=== PATIENT | male | born 1955 | race Caucasian/White ===

== ENCOUNTER 2017-08-18 19:52 | Emergency (ER) | payer MEDICARE ==
[2014-05-09 07:35] VITALS: BMI 34.0
[~2017-08-18 19:52] MED LIST: CARDIZEM120 MG PO; CLEOCIN HCL150 MG PO; COLACE100 MG PO; CYCLOBENZAPRINE5 MG; ELIQUIS2.5 MG PO; FLORANEX / LACT1 TAB PO; HYDROCODONE-APA1 TAB PO; HYDROCORTISONE30 G8 TOPICAL; IBUPROFEN800 MG PO; LASIX20 MG PO; LIORESAL 10 MG10 MG PO; MS CONTIN15 MG PO; MULTI-DAY VITAM1 TAB PO; PERCOCET 10/3251 TA1 PO; SENNA PLUS TA1 UDTAB PO; TYLENOL #4; ZYLOPRIM300 MG PO
[2017-08-18 20:39] LABS: APPEARANCE TURBID (CLEAR); COLOR RED (YELLOW); NITRITE NEGATIVE (NEGATIVE); SPECIFIC GRAVITY 1.015 (1.005-1.020)
[2017-08-18 20:40] LABS: BACTERIA FEW /hpf (NONE SEEN); BILIRUBIN NEGATIVE (NEGATIVE); GLUCOSE NEGATIVE (NEGATIVE); KETONE NEGATIVE (NEGATIVE); PROTEIN 1+ mg/dL (NEGATIVE); RED CELLS - URINE 25-50 /hpf (0-5); UROBILINOGEN NORMAL (NORMAL); WHITE CELLS - URINE 0-5 /hpf (0-5)
[2017-08-18 21:05] LABS: BASOPHILS 0.4 % (0-2); EOSINOPHILS 2.1 % (0-7); HEMATOCRIT 44.5 % (42.0-54.0); HEMOGLOBIN 15.6 g/dL (13.5-17.5); IMMATURE GRANULOCYTES 0.6 % (0-5); LYMPHOCYTES 22.2 % (15-50); MCH 33.4 pg (26.0-34.0); MCHC 35.1 g/dL (31.0-37.0); MCV 95.3 fL (80.0-100.0); MEAN PLATELET VOLUME 9.8 fL (7.4-10.4); NEUTROPHILS 66.7 % (40-80); PLATELET COUNT 165 10x3/uL (130-400); RBC 4.67 10x6/uL (4.20-6.10); RDW 12.2 % (11.5-14.5); WBC 10.9 10x3/uL (4.8-10.8)
[2017-08-18 21:36] LABS: ALBUMIN 3.8 g/dL (3.4-5.0); ALKALINE PHOSPHATASE 71 U/L (46-116); ALT (SGPT) 41 U/L (10-68); CALC OSMOLALITY 281 mosm/kg (275-300); CALCIUM 8.8 mg/dL (8.5-10.1); CARBON DIOXIDE 26.5 mmol/L (21.0-32.0); CHLORIDE - SERUM 103 mmol/L (98-107); CREATININE - SERUM 0.9 mg/dL (0.6-1.3); POTASSIUM - SERUM 3.8 mmol/L (3.5-5.1); PROTEIN - SERUM 7.8 g/dL (6.4-8.2); SODIUM 141 mmol/L (136-145); UREA NITROGEN 15 mg/dL (7-18); eGFR NON AFRICAN AMERICAN > 90 mL/min (90-120)
[2017-08-18 21:42] LABS: GLUCOSE 101 mg/dL (74-106)
== END 2017-08-18 21:58 | disposition home or self-care (01) ==
LOC: D.ER 19:52
PROVIDERS: Emergency Medicine
DX: R31.9 Hematuria, unspecified (principal)

== ENCOUNTER → 2018-11-26 11:14 | Outpatient (CLI) | payer OTHER ==
[2014-05-09 07:35] VITALS: BMI 34.0
== END | disposition home or self-care (01) ==
LOC: D.HCCARDIO 11-22 11:00
PROVIDERS: ATTEND Internal Medicine Cardiovascular Disease
DX: I35.0 Nonrheumatic aortic (valve) stenosis (principal)

== ENCOUNTER 2019-11-11 00:55 | Inpatient (IN) | payer OTHER ==
[2019-11-11] VITALS (9 sets, daily range): BP systolic 105–137; BP diastolic 74–95; Ht 175.3 cm; Wt 94.1 kg
[~2019-11-11] VITALS: Ht 175.3 cm; Wt 94.1 kg
--- NOTE | ~2019-11-11 | HEMODYNAMI ---
PATIENT:JAY CARRERA MEDICAL RECORD: [id number] : 57 LOCATION[facility] [id number] ADMISSION DATE: 11/11/19 Generatedon:11/14/201911:46 Patient name: JAY CARERRA Patient #: [id number] SSN: [id number] : 1955 Date of study: 11/14/2019 Page: Of Hemodynamic Procedure Report Patient Data Patient Demographics Procedure consent was obtained First Name: JAY Gender: Male Last Name: DEBI : 1955 Middle Initial: W Age: 64 year(s) Patient #: [id number] Race: SSN: [id number] Additional ID: [id number] Contact details Address: [address] [place] [address] ROAD State: [place] City: [place] Zip code: [address] Past Medical History Allergies Allergen Reaction Date Comments Reported Other allergy 11/14/2019 SHELLFISH Admission Admission Data Admission Date: 11/11/2019 Admission Time: 18:10 Arrival Date: 11/14/2019 Arrival Time: 0:00 Admit Source: Other Insurance Payor: Private Room #: D.[id number] health insurance [facility] #: [id number] Height (in.): 69 BSA: 2.1 (m2) Height (cm.): 175.26 BMI: 30.63 (kg/m2) Weight (lbs.): 207.39 Weight (kg.): 94.07 Lab Results Lab Result Date: 11/14/2019 Lab Result Time: 0:00 Biochemistry Name Units Result Min Max BUN mg/dl 29 --(----)-* 7 18 Creatinine mg/dl 1 --(--*-)-- 0.6 1.3 eGFR ml/min 79.65139 *-(----)-- 90 120 NONAFRICAN CBC Name Units Result Min Max Hematocrit % 42.4 --(*---)-- 42 54 Hemoglobin g/dl 13.4 -*(----)-- 13.5 17.5 Procedure Procedure Types Cath Procedure Diagnostic Procedure LHC LHC w/Coronaries Right Heart RHC and LHC w/Coronaries Sedation Charges Moderate Sedation up to 30 minutes Procedure Description Procedure Date Procedure Date: 11/14/2019 Procedure Start Time: 11:18 Procedure End Time: 11:45 Procedure Staff Name Function Naeem Min MD Performing Physician Marisela Chamberlain RT Monitor Cheryl Owens RT Scrub Say Hitchcock RN Nurse Procedure Data Cath Procedure Fluoroscopy Diagnostic fluoroscopy Total fluoroscopy Time: 3.6 time: 3.6 min min Diagnostic fluoroscopy Total fluoroscopy dose: 581 dose: 581 mGy mGy Contrast Material Contrast Material Type Amount (ml) Isovue 370 46 Entry Location Entry Primary Successful Side Size Upsize Upsize Entry Closure Ann ccessful Closure Location (Fr) 1 (Fr) 2 (Fr) Remarks Device Remarks Femoral Right 5 Fr Exoseal artery Femoral Right 7 Fr Manual vein Short Compression Estimated blood loss: 5 ml Diagnostic catheters Device Type Used For End Catheter Placement SWAN 7Fr Thermodilution Procedure cather (131F7P) MULTIPACK JL 4.0 5Fr Procedure catheter MULTIPACK 3DRC 5Fr Procedure catheter DIAGNOSTIC AL1 5Fr Procedure catheter ([id number]) Procedure Complications No complications Procedure Medications Medication Administration Route Dosage Oxygen etCO2 Nasal cannula 2 l/min Lidocaine 2% added to field 20 Heparin Flush Bag added to field 2 bags (1000units/500ml NS) 0.9% NaCl I.V. 100 ml/hr Versed I.V. 1 mg Fentanyl I.V. 50 mcg Versed I.V. 1 mg Fentanyl I.V. 50 mcg Versed I.V. 1 mg Hemodynamics Rest BSA: 2.1 (m2) HGB: 13.4 (g/dl) O2 Consumption: Estimated: 284.7 (ml/min) O2 Cons umption indexed: Estimated:135.57 (ml/min/m) Heart Rate: 119 (bpm) Pressure Samples Time Site Value (mmHg) Purpose Heart Use Rate(bpm) 11:23 PCW 57/56(54) Snapshot 109 11:24 PA 90/60(71) Snapshot 108 11:35 LV 172/47,52 Snapshot 110 11:36 AO 140/108(122) Pullback 109 11:36 LV 196/14,62 Pullback 109 11:37 RV 87/39,51 Snapshot 110 11:37 RA 56/55(53) Snapshot 120 Gradients Valve Time Site 1 Site 2 Mean SEP/DFP Peak To Heart Use (mmHg) (sec/min) Peak Rate (mmHg) (bpm) Aortic 11:36 LV AO 33 24 56 109 196/14,62 140/108(122) Thermodilution Cardiac Output Time Cardiac Output (l/min) Use 11:25 Injectate sensor off/Catheter sensor off 11:26 Injectate sensor off/Catheter sensor off 11:30 Low catheter temperature Calculations Valve P-P Mean Valve Index Valve Source Name Gradient Area Flow (cm2) Aortic 56 33 56 33 Snapshots Thermal Samples Pre Cath Intra NCS Post Cath Vital Signs Time Heart Resp SPO2 etCO2 NIBP (mmHg) Rhythm Pain Sedation Rate (ipm) (%) (mmHg) Status Level (bpm) 11:06:40 115 18 99 0 126/98(116) NSR 0 (11) 10(A) , No pain 11:10:27 113 47 100 0 118/92(107) NSR 0 (11) 10(A) , No pain 11:14:17 111 30 100 0 107/80(93) NSR 0 (11) 10(A) , No pain 11:18:02 108 18 100 0 110/89(99) NSR 0 (11) 10(A) , No pain 11:22:22 108 17 100 0 116/80(102) NSR 0 (11) 10(A) , No pain 11:26:17 107 16 100 0 114/67(93) NSR 0 (11) 10(A) , No pain 11:30:05 110 17 99 0 123/93(114) NSR 0 (11) 10(A) , No pain 11:34:25 114 17 99 0 140/106(122) NSR 0 (11) 10(A) , No pain 11:38:31 109 22 99 0 113/59(62) NSR 0 (11) 10(A) , No pain 11:43:26 110 29 99 0 122/90(105) NSR 0 (11) 10(A) , No pain Medications Time Medication Route Dose Verified Delivered Reason Notes Eff ectiveness by by 11:11:36 Oxygen etCO2 2 Naeem Deal used for Nasal l/min St Ralf Hitchcock RN procedure cannula 11:11:43 Lidocaine 2% added 20ml Naeem Naeem for local to vial [facility] anesthetic field MD [place] 11:11:49 Heparin Flush added 2 Naeem Naeem used for Bag to bags [facility] procedure (1000units/500ml field MD [place] NS) 11:11:57 0.9% NaCl I.V. 100 Naeem Buffie Per ml/hr Denison Coretta RN physician 11:12:11 Versed I.V. 1 mg Naeem Buffie for PakoRalf Hitchcock RN sedation 11:12:19 Fentanyl I.V. 50 Naeem Buffie [facility] PakoRalf Hitchcock RN sedation 11:18:39 Versed I.V. 1 mg Naeem Buffie for Denison Hitchcock RN sedation 11:18:43 Fentanyl I.V. 50 Naeem Buffie [facility] PakoRalf Hitchcock RN sedation 11:25:48 Versed I.V. 1 mg Naeem Buffie for Denison Coretta RN sedation Procedure Log Time Note 10:12:13 Informed consent obtained and on chart 10:12:16 Diagnostic Cath Status : Elective 10:12:42 Plan of Care:Hemodynamics will remain stable., Cardiac rhythm will remain stable., Comfort level will be maintained., Respiratory function will remain adequate., Patient/ family verbilizes understanding of procedure., Procedure tolerated without complication., Recovers from procedure without complications.. 10::27 Arrival Date: 11/14/2019 12:00:00 AM 10:21:27 Admit Source: Other 10:21:33 Insurance Payor : Private health insurance 10:21:58 Patient Height : 69 inches 10:22:03 Patient Weight : 207.39 lbs 10:23:08 Lab Result : Hemoglobin 13.4 g/dl 10:23:08 Lab Result : eGFR NONAFRICAN 79.28085 ml/min 10:23:08 Lab Result : BUN 29 mg/dl 10:23:08 Lab Result : Creatinine 1 mg/dl 10:23:08 Lab Result : Hematocrit 42.4 % 10:43:14 ACC Patient presents with Stable Angina CCS Anginal Class 2--Slight limitation of ordinary activity. 10:43:19 Procedure Status Urgent Heart Cath (IP). 10:43:48 Time tracking: Regular hours (M-F 7:00 - 5:00) 10:44:01 Cheryl Roman RT(R) sent for patient. Start room use. 10:44:14 Patient NPO since Midnight. 10:44:24 Patient allergic to Other allergySHELLFISH 10:44:32 Lab results completed and on chart. 10:45:29 Stress Test: no; N/A ? 10:45:31 Alarms reviewed by R. N. 10:45:31 Sharps counted by scrub and verified by R.N. 10:47:00 Risk of Mortality: 0.1 10:47:02 Risk of blood transfusion: 0.1 10:47:04 Risk of SHAHID: 0.1 10:47:35 H&P Date Dictated: 11/11/2019 Within 30 days and on chart.. 10:47:37 Pre-procedure instructions explained to patient. 10:47:37 Pre-op teaching completed and patient verbalized understanding. 10:47:39 Family in patients room. 10:58:28 Patient received from Med II to CCL 2 Alert and oriented. Tansferred to table in Supine position. 10:58:31 Warm blankets applied, and mendy hugger turned on for patient comfort. 10:58:31 Correct patient and procedure confirmed by team. 10:58:32 ECG and BP/O2 sat monitors applied to patient. 11:05:29 Vital chart was started 11:05:31 Baseline sample Acquired. 11:05:34 Full Disclosure recording started 11:05:37 Rhythm: sinus tachycardia 11:05:56 ----Pre-sedation anethsthesia assessment.---- 11:06:01 Previous problem with sedation/anesthesia? No ? 11:06:05 Snore? Yes 11:06:20 If diabetic: On Metformin? No 11:06:25 Patient diabetic? No. 11:06:34 Airway obstruction? Yes ASTHMA 11:06:38 Dentures? No ? 11:06:40 Sticks out tongue? Yes 11:06:41 Opens mouth fully? Yes 11:06:43 Deviated septum? No 11:06:45 Sleep apnea? Yes 11:07:05 Is the patient allergic to Iodine/contrast media? Yes. 11:07:14 Was the patient premedicated? Yes 11:07:17 Is patient on blood thinner?No 11:07:24 Pre procedure: right dorsailis pedis pulse 2+ Normal; easily identifiable; not easily obliterated 11:07:33 IV patent on arrival in right antecubital with 0.9% NaCl at [facility]. 11:07:40 Right groin area was prepped with chlora-prep and draped in sterile fashion 11:07:58 Use device set Femoral Dx 11:08:05 ACIST Syringe (79185) opened to sterile field. 11:08:06 Bag Decanter (2002S) opened to sterile field. 11:08:07 Medline Cath Pack ([id number]) opened to sterile field. 11:08:08 ACIST Hand Control (05350) opened to sterile field. 11:08:09 ACIST Manifold (01356) opened to sterile field. 11:08:10 DIAGNOSTIC Multipack 5Fr catheter set ([id number]) opened to sterile field. 11:08:11 SHEATH 5FR [place] (SKL803) opened to sterile field. 11:08:11 EMERALD Guide Wire (502-210) opened to sterile field. 11:09:57 SHEATH 7FR [place] (GRR916) opened to sterile field. 11:10:40 IV Extension Set opened to sterile field. 11:10:54 --------ALL STOP TIME OUT------ 11:10:54 Final Timeout: patient, procedure, and site verified with staff and physician. All members of the team are in agreement. 11:10:56 Right groin site verified by team. 11:10:59 Fire Safety Assessment: A--An alcohol-based skin anteseptic being used preoperatively., C--Open oxygen or nitrous oxide is being used., D--An ESU, laser, or fiber-optic light is being used. 11:11:04 Physical assessment completed. ASA score P 2 - A patient with mild systemic disease as per Naeem Min MD. 11:11:07 2) 60-89 Mildly reduced kidney function, and other findings (as for stage 1) point to kidney disease. 11:11:09 Maximum allowable contrast dose (3.7 X eGFR X 0.75)222 ml. 11:11:13 Sedation plan: IV Moderate Sedation Medication:Versed, Fentanyl 11:11:36 Oxygen 2 l/min etCO2 Nasal cannula was administered by Say Hitchcock RN; used for procedure; Verbal order read back and verified. 11:11:43 Lidocaine 2% 20ml vial added to field was administered by Naeem Min MD; for local anesthetic; Verbal order read back and verified. 11:11:49 Heparin Flush Bag (1000units/500ml NS) 2 bags added to field was administered by Naeem Min MD; used for procedure; Verbal order read back and verified. 11:11:57 0.9% NaCl 100 ml/hr I.V. was administered by Say Hitchcock RN; Per physician; Verbal order read back and verified. 11:12:11 Versed 1 mg I.V. was administered by Say Hitchcock RN; for sedation; Verbal order read back and verified. 11:12:19 Fentanyl 50 mcg I.V. was administered by Say Hitchcock RN; for sedation; Verbal order read back and verified. 11:18:32 Procedure started. 11:18:39 Versed 1 mg I.V. was administered by Say Hitchcock RN; for sedation; Verbal order read back and verified. 11:18:43 Fentanyl 50 mcg I.V. was administered by Say Hitchcock RN; for sedation; Verbal order read back and verified. 11:18:51 Local anesthetic to right femoral artery with Lidocaine 2% by Naeem Min MD.INITIAL ACCESS ONLY 11:19:22 A 5 Fr sheath was inserted into the Right Femoral artery 11:19:34 Local anesthetic to left femoral vein with Lidocaine 2% by Naeem Min MD.ADDITIONAL ACCESS 11:19:46 A 7 Fr Short sheath was inserted into the Right Femoral vein 11:20:01 Right Heart 11:21:17 A SWAN 7Fr Thermodilution cather (131F7P) was advanced over the wire and used for Procedure. 11:21:22 Entriken-Sylvain "C" tip catheter inserted 11::25 GLIDE WIRE J 3cm 150cm (IB1404) opened to sterile field. 11:22:34 GUIDERIGHT WIRE INSERTED. 11:25:43 Thermodilution performed using a Pool 131F7 7.0 Fr 19-22C 10.00 mL. Injectate temperature was , CO: L/min, average CO: L/min 11:25:48 Versed 1 mg I.V. was administered by Say Hitchcock RN; for sedation; Verbal order read back and verified. 11:26:36 Thermodilution performed using a Pool 131F7 7.0 Fr 19-22C 10.00 mL. Injectate temperature was , CO: L/min, average CO: L/min 11:28:29 Right heart pressures obtained. 11:28:33 A MULTIPACK JL 4.0 5Fr catheter was advanced over the wire and used for Procedure. 11:28:40 LCA angiography performed. 11:28:54 Injector settings: Ml/sec: 3, Volume: 6, 11:29:36 Catheter removed. 11:30:59 Thermodilution performed using a Pool 131F7 7.0 Fr 19-22C 10.00 mL. Injectate temperature was , CO: L/min, average CO: L/min 11:32:11 A MULTIPACK 3DRC 5Fr catheter was advanced over the wire and used for Procedure. 11:32:34 RCA angiography performed. 11:32:46 Injector settings: Ml/sec: 3, Volume: 6, 11:34:49 A DIAGNOSTIC AL1 5Fr catheter ([id number]) was advanced over the wire and used for Procedure. 11:35:12 ROADRUNNER .035 260 glide wire ([id number]) opened to sterile field. 11:35:23 LV gram done using PRINGLE 11:35:34 LV hemodynamics recorded. 11:36:08 EF : 20 % 11:36:26 Catheter removed. 11:36:56 Nitin catheter inserted 11:41:11 Catheter removed. 11:41:15 Entriken-Sylvain removed. 11:41:22 EXOSEAL 5Fr (EX500) opened to sterile field. 11:41:35 Sheath removed intact; hemostasis achieved with Exoseal to the Right Femoral artery. 11:41:43 Sheath removed intact; hemostasis achieved with Manual Compression to the Right Femoral vein. 11:41:45 Procedure ended.(Physican Out) 11:42:22 Fluoroscopy time 03.60 minutes. 11:42:26 Fluoroscopy dose: 581 mGy 11:42:26 Flurop Dose total: 581 11:42:29 Dose Area Product 130 mGy/cm. 11:42:34 Contrast amount:Isovue 370 46ml. 11:42:36 Maximum allowable dose exceeded? No. 11:42:41 Sharps counted by scrub and verified by R.N. 11:43:16 Post-op/insertion site Right Femoral artery dressed using a 4 x 4 and Tegaderm. 11:43:21 Post-op/insertion site Right Femoral vein dressed using a 4 x 4 and Tegaderm. 11:43:26 Post right femoral artery:stable, soft, clean and dry 11:43:34 Post right femoral vein:stable, soft, clean and dry 11:43:42 Post Procedure Pulses reassessed and unchanged 11:43:45 Post procedure: right dorsailis pedis pulse 2+ Normal; easily identifiable; not easily obliterated. 11:43:48 Post-procedure physical assessment completed. ASA score P 2 - A patient with mild systemic disease as per Naeem Min MD. 11:43:51 Post procedure rhythm: unchanged. 11:43:55 Estimated blood loss: 5 ml 11:43:57 Post procedure instruction explained to patient.Patient verbalizes understanding. 11:43:57 Patient needs reinforcement of post procedure teaching. 11:44:28 Procedure type changed to Cath procedure, Diagnostic procedure, LHC, LHC w/Coronaries, Right Heart, RHC and LHC w/Coronaries, Sedation Charges, Moderate Sedation up to 30 minutes 11:44:46 Procedure and supply charges have been captured, reviewed, submitted and are correct. 11:44:49 Procedure Complication : No complications 11:44:52 Vital chart was stopped 11:44:55 [facility] Findings: mild to moderate CAD (<70%) 11:45:27 RHC Findings: PHTN: see procedure notes for sats and pressures 11:45:32 Operative report dictated upon procedure completion. 11:45:32 See physician's report for complete and final results. 11:45:35 Report given to [facility]. 11:45:38 Patient transfered to [facility] with Bed. 11:45:40 Procedure ended. 11:45:40 Full Disclosure recording stopped 11:45:48 End room use (Document Last) 11:46:25 End room use (Document Last) Device Usage Item Name Manufacture Quantity Catalog Hospital Part Current Minima l Lot# / Number Charge Number Stock Stock Serial# Code ACIST Syringe Acist 1 24772 029292 295205 077101 20 (77646) Medical Systems Inc Bag Decanter Microtek 1 726453 16699 449162 5 () Medical Inc. Medline Cath Medline 1 [id number] 927225 36521 617357 5 Pack ([id number]) ACIST Hand Acist 1 44508 226201 731316 190259 5 Control Medical (49229) Systems Inc ACIST Manifold Acist 1 56852 854392 510593 808996 5 (99760) [employer] Systems Inc DIAGNOSTIC Cardinal 1 IB3100 187094 22657 831178 30 Multipack 5Fr Health catheter set (YH1675) SHEATH 5FR Terumo 1 XMS002 085152 780649 937042 5 [place] (TVK538) EMERALD Guide Cardinal 1 502-455 187444 638162 023381 5 Wire (502-455) Health SHEATH 7FR Terumo 1 PRR905 285280 780833 132645 5 [place] (UQG964) IV Extension Hospira 1 56611-27 963501 54741 252583 5 Set SWAN 7Fr Pool 1 131F7P 889953 73738 244319 3 Thermodilution Lifesciences cather (131F7P) MULTIPACK JL Cardinal 1 503797 5 4.0 5Fr Health catheter MULTIPACK 3DRC Cardinal 1 582109 5 5Fr catheter Health DIAGNOSTIC AL1 Cardinal 1 034630I 263891 621285 888490 15 5Fr catheter Health (231616Z) [facility] 1 L34510 253666 206473 864675 5 .035 260 glide wire (D52891) GLIDE WIRE J Terumo 1 SU5772 921819 741063 5 3cm 150cm (CM3813) EXOSEAL 5Fr Cardinal 1 EX500 140490 980665 561785 10 (EX500) Health Signature Audit [place] Stage Time Signature Unsigned Intra-Procedure 11/14/2019 Marisela Chamberlain 11:46:02 AM RT(R) Intra-Procedure 11/14/2019 Say Hitchcock RN 11:46:25 AM Intra-Procedure 11/14/2019 Naeem Shin 11:46:44 AM Ralf [place] Signatures Performing Physician : Signature : Naeem Pako MD Date : Time : Monitor : Marisela Young Signature : RT Date : Time : Nurse : Buffie Hitchcock RN Signature : Date : Time : [address] [place] [address]
--- NOTE | ~2019-11-11 | EC ---
PATIENT:JAY CARRERA DATE OF SERVICE: 11/11/19 SEX: M MEDICAL RECORD: [id number] DATE OF : 57 LOCATION:D.M2 D.213 AGE OF PATIENT: 64 ADMISSION DATE: 11/11/19 REFERRING PHYSICIAN: INTERPRETING PHYSICIAN: CLYDE HINTON MD ECHOCARDIOGRAM REPORT ECHO CHARGES 4 ECHO COMPLETE Date: 11/11/19 CLINICAL DIAGNOSIS: DYSPNEA ECHOCARDIOGRAPHIC MEASUREMENTS (adult normal given) AC root (d.<3.7cm) 2.5 cm LV Septum d (<1.2 cm> 0.7 cm Valve Excursion 0.9 cm LV Septum (systole) 1.1 cm Left Atria (s.<4.0cm> 5.3 cm LVPW d(<1.2cm) 0.8 cm RV (d.<2.3cm) 3.4 cm LVPW (sytole) 1.1 cm LV diastole(<5.6CM) 6.7 cm MV E-F(>70mm/sec) cm LV systole 5.2 cm LVOT Diameter 1.9 cm MV exc.(>10mm) cm Est.ejection fraction (50-75%) % DOPPLER: LVIT cm/sec A 30 cm/sec E 58 cm/sec LA cm/sec RVSP 25.7 mmHg LVOT 49 cm/sec AOP1/2T m/s Asc. Ao 60 cm/sec RVOT 46 cm/sec RA cm/sec PA 53 cm/sec AV Gradient Peak 1.4 mmHg AV Mean 0.8 mmHg AV Area 2.0 cm MV Gradient Peak 2.1 mmHg MV Mean 1.2 mmHg MV Area cm COMMENTS: Unhairing Inspector: Lawrence [facility] Form Builder: Enid Hinton TAPE# PACS Pericardial Effusion N DATE OF SERVICE: PROCEDURE: Transthoracic echocardiogram. FINDINGS: 1. Left ventricle is dilated. There is global hypokinesis, asynchronous wall motion and also regional wall motion abnormalities are present. Overall, ejection fraction is 20% to 30%. 2. Left atrium is severely dilated. 3. The aortic valve has what appears to be severe aortic stenosis, probably a ECHOCARDIOGRAM REPORT [id number] JAY CARRERA low flow aortic stenosis that appears to be severe. 4. The mitral valve has moderate mitral regurgitation. 5. Tricuspid valve has moderate tricuspid regurgitation. RVSP is not well demonstrated on this study. 6. Right ventricle is dilated, normal function. 7. Right atrium is severely enlarged. 8. Pulmonic valve is not well visualized. IMPRESSION: The patient has a severe cardiomyopathy and what appears to be possibly severe aortic stenosis at transesophageal echocardiogram and/or right and left heart catheterization may be helpful. TRANSINT:[id number] Voice Confirmation ID: [id number] DOCUMENT ID: [id number] CLYDE HINTON MD CC: [id number] DICTATION DATE: 11/13/19 161 KEY ACCOUNT DIRECTOR: 11/13/19 193 ADM IN [facility] [address] [id number]
[2019-11-11] MEDS ORDERED: ZPAK PO (01:15)
--- NOTE | 2019-11-11 02:00 | NUR ---
URINAL GIVEN TO PT. PT REPORTS THAT HE CANNOT URINATE AT THE MOMENT.
[2019-11-11 02:19] LABS: BASOPHILS 0.1 % (0-2); EOSINOPHILS 0 % (0-7); HEMATOCRIT 41.9 % (42.0-54.0); HEMOGLOBIN 13.5 g/dL (13.5-17.5); IMMATURE GRANULOCYTES 1.3 % (0-5); LYMPHOCYTES 4.7 % (15-50); MCH 34.3 pg (26.0-34.0); MCHC 32.2 g/dL (31.0-37.0); MCV 106.3 fL (80.0-100.0); MEAN PLATELET VOLUME 11.6 fL (7.4-10.4); MONOCYTES 5.2 % (2-11); NEUTROPHILS 88.7 % (40-80); PLATELET COUNT 183 10x3/uL (130-400); RBC 3.94 10x6/uL (4.20-6.10); RDW 13.9 % (11.5-14.5); WBC 17.2 10x3/uL (4.8-10.8)
[2019-11-11 02:29] LABS: ANION GAP 18.1 mmol/L (8-16); CALCIUM 8.5 mg/dL (8.5-10.1); CARBON DIOXIDE 21.2 mmol/L (21.0-32.0); CREATININE - SERUM 1.3 mg/dL (0.6-1.3); POTASSIUM - SERUM 4.3 mmol/L (3.5-5.1)
[2019-11-11 02:50] LABS: ALBUMIN 3.5 g/dL (3.4-5.0); BILIRUBIN - TOTAL 0.83 mg/dL (0.2-1.3); C-REACTIVE PROTEIN 3.3 mg/dL (0.0-0.9); THYROID STIMULATING HORMONE 0.66 uIU/mL (0.36-3.74); TROPONIN-I 0.058 ng/mL (0.000-0.060)
[2019-11-11] MEDS ORDERED: PROAIR HFA8.5 G1 INH (06:09)
[2019-11-11] MEDS ORDERED: PERCOCET 10-321 EAC1 PO (06:10)
[2019-11-11 12:21] LABS: INR 1.15 (0.85-1.17); PROTIME 14.6 SECONDS (11.6-15.0)
[2019-11-11 13:49] LABS: BILIRUBIN NEGATIVE (NEGATIVE); GLUCOSE NEGATIVE (NEGATIVE); KETONE NEGATIVE (NEGATIVE); NITRITE NEGATIVE (NEGATIVE); UROBILINOGEN NORMAL (NORMAL)
[2019-11-11 13:51] LABS: BACTERIA FEW /hpf (NEGATIVE); RED CELLS - URINE NONE SEEN /hpf (0-5); WHITE CELLS - URINE RARE /hpf (NEGATIVE)
[2019-11-11 13:54] LABS: UDS - AMPHET NEGATIVE QUAL (NEGATIVE); UDS - BARB NEGATIVE QUAL (NEGATIVE); UDS - BENZO NEGATIVE QUAL (NEGATIVE); UDS - COCAINE NEGATIVE QUAL (NEGATIVE); UDS - OPIATE POSITIVE QUAL (NEGATIVE); UDS - PCP NEGATIVE QUAL (NEGATIVE); UDS - THC NEGATIVE QUAL (NEGATIVE)
--- NOTE | 2019-11-11 19:30 | NUR ---
PT IN BED, AAO X 3, RESP EVEN AND UNLABORED. NO DISTRESS NOTED, CL IN REACH, SR UP X 2.
[2019-11-12 00:48] VITALS: BP 108/69
[2019-11-12 04:46] VITALS: BP 111/81
[2019-11-12 07:15] LABS: BASOPHILS 0.1 % (0-2); EOSINOPHILS 0.1 % (0-7); HEMATOCRIT 45.2 % (42.0-54.0); HEMOGLOBIN 14.4 g/dL (13.5-17.5); IMMATURE GRANULOCYTES 1.5 % (0-5); LYMPHOCYTES 9.5 % (15-50); MCH 34.5 pg (26.0-34.0); MCHC 31.9 g/dL (31.0-37.0); MCV 108.4 fL (80.0-100.0); MEAN PLATELET VOLUME 11.5 fL (7.4-10.4); MONOCYTES 7.8 % (2-11); PLATELET COUNT 164 10x3/uL (130-400); RBC 4.17 10x6/uL (4.20-6.10); RDW 14.3 % (11.5-14.5); WBC 19.9 10x3/uL (4.8-10.8)
[2019-11-12 07:20] LABS: ALBUMIN 3.5 g/dL (3.4-5.0); ANION GAP 16.3 mmol/L (8-16); CALCIUM 8.8 mg/dL (8.5-10.1); CARBON DIOXIDE 23.5 mmol/L (21.0-32.0); CREATININE - SERUM 1.4 mg/dL (0.6-1.3); POTASSIUM - SERUM 4.8 mmol/L (3.5-5.1)
--- NOTE | 2019-11-12 09:21 | NUR ---
PT AWAKE AND ORIENTED WHEN I ENTERE ROOM. UP EATING BREAKFAST. NO COMPLAINTS OR CONCERNS AT THIS TIME. CL IN REACH, SRX2.
[2019-11-12 09:41] VITALS: BP 120/95
[2019-11-12 12:15] VITALS: BP 113/44
--- NOTE | 2019-11-12 16:53 | NUR ---
I have reviewed this patient and I concur with the Shift Assessment completed by the Licensed Practical Nurse today this shift.
[2019-11-12 17:30] VITALS: BP 123/93
--- NOTE | 2019-11-12 19:21 | NUR ---
RECEIVED REPORT, WILL ASSUME CARE OF PT, EXPLAINED WE NEED A RESPIRTORY CULTURE,AND UA, DENIES ANY NEEDS, BED IS LOW, SRX2, CALL LIGHT IN REACH, WILL CONTINUE PLAN OF CARE
--- NOTE | 2019-11-12 19:46 | NUR ---
COLLECTED UA, TOOK TO LAB
[2019-11-12 20:00] VITALS: BP 124/97
--- NOTE | 2019-11-12 20:20 | NUR ---
COMPLAINS OF PAIN, GAVE PERCOCET-10 ORDERED
--- NOTE | 2019-11-12 22:00 | NUR ---
BIA SHIN RESITED 20G. IV TO RAC
--- NOTE | 2019-11-12 23:00 | NUR ---
SHOWERED, UNIFORM FORCE CAPTAIN CHANGED LINEN, TELEMTRY BACK ON, DENIES ANY NEEDS, BED IS LOW, CALL LIGHT IN REACH
[2019-11-13 04:00] VITALS: BP 109/82
--- NOTE | 2019-11-13 05:16 | NUR ---
I have reviewed this patient and I concur with the Shift Assessment completed by the Licensed Practical Nurse today this shift.
[2019-11-13 07:30] LABS: MAGNESIUM - SERUM 1.8 mg/dL (1.8-2.4); PHOSPHOROUS 4.2 mg/dL (2.5-4.9)
--- NOTE | 2019-11-13 09:04 | NUR ---
PT AWAKE AND OREITNED WHEN I ENTERED ONSIDE OF BED EATING BREAKFAST. STATES HE FEELS BETTER TODAY. NO COMPLAINTS OR CONCERNS STATED AT THIS TIME. CL INR EACH,S RX2.
[2019-11-13 09:24] VITALS: BP 118/91
[2019-11-13 12:00] VITALS: BP 112/86
[2019-11-13 16:00] VITALS: BP 121/92
--- NOTE | 2019-11-13 19:05 | NUR ---
RECEIVED REPORT, WILL ASSUME CARE OF PT, ASKING FOR ATIVAN, WILL GIVE ORDERED, PT DENIES ANY OTHER NEEDS AT THIS TIME, BED IS LOW, SRX2, CALL LIGHT IN REACH, WILL CONTINUE PLAN OF CARE
[2019-11-13 21:07] VITALS: BP 122/90
[2019-11-14 00:32] VITALS: BP 108/84
[2019-11-14 04:13] VITALS: BP 110/80
[2019-11-14 05:45] LABS: BASOPHILS 0.1 % (0-2); EOSINOPHILS 0.6 % (0-7); HEMATOCRIT 42.4 % (42.0-54.0); HEMOGLOBIN 13.4 g/dL (13.5-17.5); IMMATURE GRANULOCYTES 1.6 % (0-5); LYMPHOCYTES 16.7 % (15-50); MCH 33.8 pg (26.0-34.0); MCHC 31.6 g/dL (31.0-37.0); MCV 107.1 fL (80.0-100.0); MEAN PLATELET VOLUME 11.6 fL (7.4-10.4); MONOCYTES 9.1 % (2-11); NEUTROPHILS 71.9 % (40-80); RBC 3.96 10x6/uL (4.20-6.10); RDW 13.7 % (11.5-14.5); WBC 15.7 10x3/uL (4.8-10.8)
[2019-11-14 05:52] LABS: PLATELET COUNT 113 10x3/uL (130-400)
[2019-11-14 06:18] LABS: ALBUMIN 3.1 g/dL (3.4-5.0); ALKALINE PHOSPHATASE 82 U/L (30-120); ALT (SGPT) 78 U/L (10-68); BILIRUBIN - TOTAL 1.04 mg/dL (0.2-1.3); CALC OSMOLALITY 268 mosm/kg (275-300); CALCIUM 8.6 mg/dL (8.5-10.1); CARBON DIOXIDE 25.4 mmol/L (21.0-32.0); CHLORIDE - SERUM 97 mmol/L (98-107); GLUCOSE 105 mg/dL (74-106); POTASSIUM - SERUM 4.7 mmol/L (3.5-5.1); PROTEIN - SERUM 6.2 g/dL (6.4-8.2); SODIUM 131 mmol/L (136-145); UREA NITROGEN 29 mg/dL (7-18); eGFR NON AFRICAN AMERICAN 80 mL/min (90-120)
--- NOTE | 2019-11-14 07:56 | CN ---
PATIENT NAME:JAY CARRERA MEDICAL RECORD: [id number] : 57 LOCATION:. D.2134 ADMIT DATE: 11/11/19 ACCOUNT: [id number] CONSULTING PHYSICIAN: ARLEN SAUCEDA MD REFERRING PHYSICIAN: PANCHO WILL MD DATE OF CONSULTATION: 11/11/2019 HISTORY OF PRESENT ILLNESS: A 64-year-old gentleman with a known history of aortic valve disease status post echo and a known bicuspid AOV with last gradient approximately 50 mmHg. About a 2 week history of what sounds like a volume overload, worsening valve symptomology, dyspnea on exertion, cough. No fever, chills, loss of taste, anosmia, etc. COVID is currently pending. We are asked to see him concerning his cardiovascular status. PAST MEDICAL HISTORY: Includes; 1. History of hypertension. 2. Hyperlipidemia. 3. Cardiac arrhythmias SVT. 4. Aortic stenosis. MEDICATIONS: Typically include albuterol 2 puffs q.i.d., Flexeril 10 b.i.d., diltiazem 120 every day, oxycodone 10/325 every 4 p.r.n. ALLERGIES: SHELLFISH. SOCIAL HISTORY: Does try to exercise on a regular basis. He is a nonsmoker and nondrinker. Easily takes care of his ADLs. REVIEW OF SYSTEMS: The patient reports easy bruising but reports no swollen glands. The patient reports no fever, no night sweats, no significant weight gain, no significant weight loss. No significant exercise tolerance. The patient reports no dry eyes, no irritation, no vision change. Patient reports no difficulty hearing and no ear pain. Patient reports no frequent nose bleeds or nose and sinus problems. Patient reports on arm pain on exertion. No shortness of breath while lying down. No history of heart murmur. Patient reports no cough, no wheezing or coughing up blood. Patient reports no abdominal pain, no vomiting. Normal appetite. No diarrhea and not vomiting blood. No nausea and no constipation. Patient reports no incontinence. No difficulty urinating. No hematuria. No increased frequency. Patient reports no muscle aches. No weakness, no arthralgias, no back pain. No swelling of the extremities. Patient reports no abnormal mole, no jaundice, no rashes. Reports no loss of consciousness. No weakness and no numbness. No seizures, dizziness, or headaches. The patient reports no depression, no sleep disturbance, feeling safe in a relationship and no alcohol abuse. Patient reports on fatigue. Reports no runny nose or sinus pressure. No itching, no hives, and no frequent sneezing. PHYSICAL EXAMINATION: GENERAL: Pleasant gentleman in no acute distress, appears stated age. VITAL SIGNS: Pulse 112, blood pressure 123/93. HEENT: Normocephalic and atraumatic. NECK: No JVD or bruit. HEART: Regular, tachycardic, II/ systolic ejection murmur. Probable S3 gallop is noted. LUNGS: Diminished air excursion. CONSULT REPORT [id number] JAY CARRERA ABDOMEN: Soft, nontender. EXTREMITIES: Pulses well preserved, 2+. There is 1+ edema. IMPRESSION AND PLAN: Symptomology is certainly concerning for worsening aortic stenosis with decrease in pump function at this point. Await COVID serology. Check echocardiographic study. Will need angiography with surgical intervention of the aortic valve plus or minus bypass grafting through same setting. Further recommendations based on the above. TRANSINT:[id number] Voice Confirmation ID: [id number] DOCUMENT ID: [id number] ARLEN SAUCEDA MD at 0756 CC: [id number] DICTATION DATE: 11/11/19915 ASSEMBLER SURGICAL GARMENT: 11/11/19 1017 ADM IN [facility] [id number] [place] [address]
[2019-11-14 08:38] LABS: LDL-HDL RATIO 1.5 ratio (1.5-3.5)
--- NOTE | 2019-11-14 09:48 | NUR ---
PT AWAKE AND ORIENTED WHEN I ENTERED ROOM. WHILE PREFORMING DAILY ASSESMENT PT EXPRESSED CONCERNS AT HIS LACK OF KNOWLEDGE ABOUT HIS STAY. ANSWERED ALL QUESTIONS TO THE BEST OF MY ABILITY. DR. TERRY SPOKE TO HIM, WILL DO HEART CATH TODAY. CL IN REACH, SRX2, NO VISITORS AT BEDSIDE.
[2019-11-14 10:33] VITALS: BP 139/102
--- NOTE | 2019-11-14 10:56 | NUR ---
PT TAKEN TO ECDIS N NAVIGATION OPERATOR.
--- NOTE | 2019-11-14 13:48 | NUR ---
Nutrition Follow-up: Pt reports appetite is ok. Small BM yesterday; states he usually eats yogurt and takes a probiotic at home. Noted plans for cath today. Diet: AHA ADA Wt: 207.4# (11/10) Labs noted: Na 131, Glu 105, Alb 3.1 Meds noted: Lasix, Bumex, Protonix, Florajen3, NS @ KVO, electrolyte protocol -Encourage PO intake and honor food preferences within diet restrictions. -Monitor wt. -RD following.
[2019-11-14 14:24] VITALS: BP 122/60
--- NOTE | 2019-11-14 14:25 | NUR ---
PT AWAKE AN DORIENTED, NO BLEEDING FROM EXOCEAL SITE. FRIEND IN ROOM.
--- NOTE | 2019-11-14 17:42 | NUR ---
I have reviewed this patient and I concur with the Shift Assessment completed by the Licensed Practical Nurse today this shift.
--- NOTE | 2019-11-14 19:19 | NUR ---
PT TRANFER BY [facility] TO [place]
--- NOTE | 2019-11-15 08:41 | OP ---
PATIENT NAME: JAY CARRERA MEDICAL RECORD: [id number] :57 LOCATION:D.M2 D.2134 ADMISSION DATE:11/11/19 SURGEON: ARLEN SAUCEDA MD DATE OF OPERATION: 11/14/2019 PROCEDURE: Left and right heart catheterization performed via right femoral artery and vein approach respectively. CATHETERS USED: Included a 5-Portuguese sheath on the arterial side and 8-Portuguese sheath on the venous side. [place]-Sylvain catheter AR as road runner to cross the aortic valve as well as JR left and right. Procedure was well tolerated. The patient returned to miller, sheath removed and manual pressure as well as ExoSeal device placed. Left ventriculography in 30-degree PRINGLE view showed global hypokinesis with reduced EF, estimated EF 20% to 25%. EDP is elevated at 30 to 35 mmHg. There is additionally a 60 mm gradient across the aortic valve with variation in gradient after PVC consistent with broken-ondina phenomena. CORONARY ANATOMY: LEFT MAIN: Left main is free of disease. LAD: LAD is free of disease in the diagonal system. CIRCUMFLEX: Free of disease in the marginal system. RIGHT CORONARY ARTERY: Dominant artery, gives rise to PDA, free of disease. The right heart catheter was placed from the inferior vena cava distally into the wedge and pressures were measured and were drawn in a stepwise fashion. A pulmonary capillary wedge pressure showed a mean of 55 mmHg. Pulmonary artery pressures are elevated at 87/52 with a mean of 55. RV pressure approximately 82/33. RA pressure was elevated at 35. IMPRESSION: Critical and decreased pump function. No significant coronary artery disease. TRANSINT:[id number] Voice Confirmation ID: [id number] DOCUMENT ID: [id number] ARLEN SAUCEDA MD at 0841 CC: [id number] DICTATION DATE: 11/14/19 1200 GAS REGULATOR REPAIRER HELPER: 11/14/192127 DIS IN 11/14/19 [facility] [address] [place] [address]
== END 2019-11-14 19:22 | disposition short-term general hospital (02) | DRG 286 ==
LOC: D.ER 00:55 → D.M2 04:06 → OBSVTIME 04:06 → D.M2 18:10
PROVIDERS: Family Medicine; Internal Medicine Interventional Cardiology; Internal Medicine Pulmonary Disease; ADMIT Emergency Medicine; ATTEND Emergency Medicine
PROC: B31U1ZZ Fluoroscopy of Pulmonary Trunk using Low Osmolar Contrast (ICD-10-PCS; 2019-11-14)
PROC: B2151ZZ Fluoroscopy of Left Heart using Low Osmolar Contrast (ICD-10-PCS; 2019-11-14)
PROC: 4A023N7 Measurement of Cardiac Sampling and Pressure, Left Heart, Percutaneous Approach (ICD-10-PCS; 2019-11-14)
PROC: B2111ZZ Fluoroscopy of Multiple Coronary Arteries using Low Osmolar Contrast (ICD-10-PCS; principal; 2019-11-14 10:44)
PROC: B5191ZZ Fluoroscopy of Inferior Vena Cava using Low Osmolar Contrast (ICD-10-PCS; 2019-11-14 10:44)
DX: I35.0 Nonrheumatic aortic (valve) stenosis (principal); J18.9 Pneumonia, unspecified organism; I50.31 Acute diastolic (congestive) heart failure; I13.0 Hypertensive heart and chronic kidney disease with heart failure and stage 1 through stage 4 chronic kidney disease, or unspecified chronic kidney disease; E87.1 Hypo-osmolality and hyponatremia; N17.9 Acute kidney failure, unspecified; E78.5 Hyperlipidemia, unspecified; J45.909 Unspecified asthma, uncomplicated; K21.9 Gastro-esophageal reflux disease without esophagitis; E66.9 Obesity, unspecified; Z68.30 Body mass index [BMI] 30.0-30.9, adult; K70.0 Alcoholic fatty liver; D53.9 Nutritional anemia, unspecified; N18.9 Chronic kidney disease, unspecified; F10.10 Alcohol abuse, uncomplicated

== ENCOUNTER 2020-08-31 00:08 | Inpatient (IN) | payer OTHER ==
[~2020-08-31] VITALS: Ht 175.3 cm; Wt 84.6 kg
[2020-08-31] VITALS (9 sets, daily range): BP systolic 102–134; BP diastolic 54–83; Ht 175.3 cm; Wt 84.6 kg
[~2020-08-31 00:08] MED LIST changes: +ALDACTONE25 MG PO; +CALMOSEPTINE OI71 GM TOPICAL; +CYCLOBENZAPRINE10 MG PO; +ELIQUIS5 MG PO; +ENTRESTO 24 MG1 EACH PO; +FOLIC ACID1 MG PO; +FUROSEMIDE20 MG PO; +HUMALOG 30100 UNITS/ SC; +INDOCIN25 MG PO; +KLONOPIN0.5 MG PO; +LIPITOR20 MG PO; +PACERONE200 MG PO; +PEPCID AC20 MG PO; +PERCOCET 10-321 EAC1 PO; +PROAIR HFA8.5 G1 INH; +PROTONIX40 MG PO; +TOPROL XL50 MG PO; +TUMS PO; +VITAMIN B-1100 M1 PO; +ZPAK PO; +ZYLOPRIM100 MG
[2020-08-31 00:48] LABS: BASOPHILS 0.4 % (0-2); CALC OSMOLALITY 285 mosm/kg (275-300); CALCIUM 9.1 mg/dL (8.5-10.1); CHLORIDE - SERUM 98 mmol/L (98-107); CREATININE - SERUM 3.1 mg/dL (0.6-1.3); EOSINOPHILS 0.1 % (0-7); HEMATOCRIT 41.8 % (42.0-54.0); HEMOGLOBIN 13.5 g/dL (13.5-17.5); IMMATURE GRANULOCYTES 0.5 % (0-5); LYMPHOCYTE ABS# 0.74 10x3/uL (1.32-3.57); LYMPHOCYTES 7.2 % (15-50); MCH 30.2 pg (26.0-34.0); MCHC 32.3 g/dL (31.0-37.0); MCV 93.5 fL (80.0-100.0); MEAN PLATELET VOLUME 9.4 fL (7.4-10.4); MONOCYTES 5.8 % (2-11); NEUTROPHIL ABS# 8.83 10x3/uL (1.78-5.38); PLATELET COUNT 170 10x3/uL (130-400); POTASSIUM - SERUM 5.4 mmol/L (3.5-5.1); RBC 4.47 10x6/uL (4.20-6.10); RDW 13.2 % (11.5-14.5); SODIUM 137 mmol/L (136-145); UREA NITROGEN 30 mg/dL (7-18); WBC 10.3 10x3/uL (4.8-10.8); eGFR NON AFRICAN AMERICAN 22 mL/min (90-120)
[2020-08-31 00:49] LABS: GLUCOSE 202 mg/dL (74-106)
[2020-08-31 01:06] LABS: ALBUMIN 3.7 g/dL (3.4-5.0); ALKALINE PHOSPHATASE 146 U/L (30-120); ALT (SGPT) 26 U/L (10-68); BILIRUBIN - TOTAL 0.94 mg/dL (0.2-1.3); CREATINE KINASE 90 UL (21-232); LIPASE 58 U/L (73-393); MAGNESIUM - SERUM 2.1 mg/dL (1.8-2.4); PRO BNP 313 pg/mL (0-125); PROTEIN - SERUM 8.2 g/dL (6.4-8.2); THYROID STIMULATING HORMONE 6.48 uIU/mL (0.36-3.74); TROPONIN-I < 0.017 ng/mL (0.000-0.060)
[2020-08-31 01:23] LABS: BILIRUBIN NEGATIVE (NEGATIVE); KETONE NEGATIVE (NEGATIVE); NITRITE NEGATIVE (NEGATIVE); UROBILINOGEN NORMAL mg/dL (< 2)
[2020-08-31 01:34] LABS: UDS - AMPHET NEGATIVE QUAL (NEGATIVE); UDS - BARB NEGATIVE QUAL (NEGATIVE); UDS - BENZO POSITIVE QUAL (NEGATIVE); UDS - COCAINE NEGATIVE QUAL (NEGATIVE); UDS - OPIATE POSITIVE QUAL (NEGATIVE); UDS - PCP NEGATIVE QUAL (NEGATIVE); UDS - THC NEGATIVE QUAL (NEGATIVE)
--- NOTE | 2020-08-31 05:32 | NUR ---
PT UNABLE TO TELL ME HOME MEDICATIONS, STILL HAVING HALLUCINATIONS, PT REMOVED SCAB TO RIGHT HAND, DRESSING APPLIED. PT KEEPS WALKING AROUND ROOM AND HALLWAY CONFUSED. HARD TO REDIRECT. PTS STORY KEEPS CHANGING. ALERT TO SELFT ONLY. AGGITATED EASILY. WILL CTM.
--- NOTE | 2020-08-31 07:00 | NUR ---
PT SITTING ON SIDE OF BED. RESP EVEN AND UNLABORED. ALERT AND ORIENTED TO PERSON. CONFUSED ABOUT PLACE AND TIME. DENIES NEEDS AT THIS TIME. CLIR. BED IN LOWEST POSITION. SIDE RAILS X2
[2020-08-31 09:45] LABS: ANION GAP 14.3 mmol/L (8-16); CALCIUM 8.7 mg/dL (8.5-10.1); CREATININE - SERUM 2.7 mg/dL (0.6-1.3); POTASSIUM - SERUM 5.3 mmol/L (3.5-5.1)
[2020-08-31] MEDS ORDERED: ZYLOPRIM100 MG PO (10:02)
[2020-08-31] MEDS ORDERED: LIPITOR20 MG PO (10:03)
[2020-08-31] MEDS ORDERED: KLONOPIN0.5 MG PO (10:03)
[2020-08-31] MEDS ORDERED: CYCLOBENZAPRINE10 MG PO (10:05)
[2020-08-31] MEDS ORDERED: ENTRESTO 24 MG1 EACH PO (10:06)
[2020-08-31] MEDS ORDERED: PEPCID AC20 MG PO (10:06)
[2020-08-31] MEDS ORDERED: FOLIC ACID1 MG PO (10:07)
[2020-08-31] MEDS ORDERED: LASIX40 MG PO (10:07)
[2020-08-31] MEDS ORDERED: METOPROLOL TART50 MG PO (10:08)
[2020-08-31] MEDS ORDERED: TIROSINT25 MCG PO (10:08)
[2020-08-31] MEDS ORDERED: PERCOCET 7.5/321 TAB PO (10:09)
[2020-08-31] MEDS ORDERED: ALDACTONE25 MG PO (10:10)
--- NOTE | 2020-08-31 12:15 | NUR ---
PT RETURNED TO UNIT FROM CT ACCOMPANIED BY HOSPITAL STAFF
--- NOTE | 2020-08-31 20:30 | NUR ---
ALVA FRANCIS APN CALLED ABOUT PT BEING CONFUSED AND WONDERING IN BRANDT WAY, HALDOL 1 MG IM GIVEN PER ORDER.
--- NOTE | 2020-08-31 23:00 | NUR ---
PT PLACED IN SOFT WRIST RESTRAINTS PER MD ORDER AT THIS TIME.
[2020-09-01] VITALS (7 sets, daily range): BP systolic 92–122; BP diastolic 62–75
--- NOTE | 2020-09-01 02:46 | NUR ---
18g PIV SITED TO TO RIGHT FA, X1 ATTEMPT. PT TOLERATED WELL
[2020-09-01 05:40] LABS: BASOPHILS 0.2 % (0-2); EOSINOPHILS 2.2 % (0-7); IMMATURE GRANULOCYTES 0.3 % (0-5); LYMPHOCYTE ABS# 1.47 10x3/uL (1.32-3.57); LYMPHOCYTES 25.3 % (15-50); MCH 30.1 pg (26.0-34.0); MCHC 31.9 g/dL (31.0-37.0); MCV 94.2 fL (80.0-100.0); MEAN PLATELET VOLUME 10.1 fL (7.4-10.4); MONOCYTES 8.4 % (2-11); NEUTROPHILS 63.6 % (40-80); RDW 13.1 % (11.5-14.5)
[2020-09-01 05:45] LABS: HEMATOCRIT 32.6 % (42.0-54.0); HEMOGLOBIN 10.4 g/dL (13.5-17.5); PLATELET COUNT 119 10x3/uL (130-400); RBC 3.46 10x6/uL (4.20-6.10); WBC 5.8 10x3/uL (4.8-10.8)
[2020-09-01 05:56] LABS: ALBUMIN 2.9 g/dL (3.4-5.0); BILIRUBIN - TOTAL 1.01 mg/dL (0.2-1.3); CALCIUM 8.6 mg/dL (8.5-10.1); CARBON DIOXIDE 25.2 mmol/L (21.0-32.0); CREATININE - SERUM 1.6 mg/dL (0.6-1.3); PHOSPHOROUS 3.1 mg/dL (2.5-4.9); POTASSIUM - SERUM 4.2 mmol/L (3.5-5.1); PROTEIN - SERUM 6.3 g/dL (6.4-8.2)
--- NOTE | 2020-09-01 07:26 | NUR ---
REPORT RECEIVED. PATIENT IS LYING IN BED ON LEFT SIDE, RESTING WITH EYES CLOSED. NO S/S OF DISTRESS OBSERVED. RR EVEN AND UNLABORED ON ROOM AIR. WRIST RESTRAINTS ARE CURRENTLY OFF. PIV TO RT FA, SL AND LT FA, PATENT, INFUSING BANANA BAG @ 125ML/HR. NO NEEDS EXPRESSED AT THIS TIME. CL IN REACH, BED LOCKED AND LOWERED. WILL CPOC.
--- NOTE | 2020-09-01 19:30 | NUR ---
PT IN BED, AAO X 3, RESP EVEN AND UNLABORED, NO DISTRESS NOTED, CL IN REACH, SR UP X 2. NO RESTRAINTS AT THIS TIME.
[2020-09-02] VITALS (7 sets, daily range): BP systolic 121–147; BP diastolic 56–80
[2020-09-02 06:40] LABS: ALBUMIN 2.4 g/dL (3.4-5.0); ANION GAP 12.6 mmol/L (8-16); BILIRUBIN - TOTAL 0.62 mg/dL (0.2-1.3); CALCIUM 8.1 mg/dL (8.5-10.1); CARBON DIOXIDE 21.6 mmol/L (21.0-32.0); MAGNESIUM - SERUM 2.4 mg/dL (1.8-2.4); PHOSPHOROUS 3.1 mg/dL (2.5-4.9); POTASSIUM - SERUM 4.2 mmol/L (3.5-5.1); PROTEIN - SERUM 5.9 g/dL (6.4-8.2)
[2020-09-02 06:44] LABS: CREATININE - SERUM 1.1 mg/dL (0.6-1.3)
--- NOTE | 2020-09-02 07:20 | NUR ---
RECIEVE REPORT. RESTING IN BED WITH EYES CLOSED. NO SIGNS OF DISTRESS. CONTINUE PLAN OF CARE AND SAFETY PRECAUTIONS.
[2020-09-02 07:41] LABS: BASOPHILS 0.6 % (0-2); EOSINOPHILS 3.1 % (0-7); HEMATOCRIT 33.1 % (42.0-54.0); HEMOGLOBIN 10.6 g/dL (13.5-17.5); IMMATURE GRANULOCYTES 0.4 % (0-5); LYMPHOCYTE ABS# 1.63 10x3/uL (1.32-3.57); LYMPHOCYTES 33.3 % (15-50); MCH 30.5 pg (26.0-34.0); MCV 95.4 fL (80.0-100.0); MEAN PLATELET VOLUME 10.3 fL (7.4-10.4); NEUTROPHIL ABS# 2.63 10x3/uL (1.78-5.38); NEUTROPHILS 53.6 % (40-80); RBC 3.47 10x6/uL (4.20-6.10); WBC 4.9 10x3/uL (4.8-10.8)
[2020-09-02 07:42] LABS: PLATELET COUNT 72 10x3/uL (130-400)
[2020-09-02 08:50] LABS: PLATELET ESTIMATE DECREASED
[2020-09-03] VITALS (8 sets, daily range): BP systolic 137–164; BP diastolic 69–99
--- NOTE | 2020-09-03 04:54 | NUR ---
pt has stayed awake majority of night, he has required prn ativan and morphine for pain, anxiety and restlessness. He is almost cosntantly changing position. he continues on video for safety measures. urinal at bedside education provided multiple times this shift to use urinal at bedside and avoid ambulating for fall precautions
[2020-09-03 06:28] LABS: BASOPHILS 0.4 % (0-2); EOSINOPHILS 3.2 % (0-7); HEMATOCRIT 29.8 % (42.0-54.0); HEMOGLOBIN 9.5 g/dL (13.5-17.5); IMMATURE GRANULOCYTES 0.4 % (0-5); LYMPHOCYTE ABS# 1.59 10x3/uL (1.32-3.57); LYMPHOCYTES 34.1 % (15-50); MCH 30.1 pg (26.0-34.0); MCHC 31.9 g/dL (31.0-37.0); MCV 94.3 fL (80.0-100.0); MONOCYTES 10.7 % (2-11); NEUTROPHIL ABS# 2.38 10x3/uL (1.78-5.38); NEUTROPHILS 51.2 % (40-80); PLATELET COUNT 78 10x3/uL (130-400); RBC 3.16 10x6/uL (4.20-6.10); RDW 12.9 % (11.5-14.5); WBC 4.7 10x3/uL (4.8-10.8)
[2020-09-03 06:31] LABS: ALBUMIN 2.8 g/dL (3.4-5.0); ALKALINE PHOSPHATASE 88 U/L (30-120); ALT (SGPT) 15 U/L (10-68); BILIRUBIN - TOTAL 0.51 mg/dL (0.2-1.3); CALC OSMOLALITY 282 mosm/kg (275-300); CALCIUM 8.6 mg/dL (8.5-10.1); CARBON DIOXIDE 21.9 mmol/L (21.0-32.0); CHLORIDE - SERUM 109 mmol/L (98-107); GLUCOSE 81 mg/dL (74-106); MAGNESIUM - SERUM 2.3 mg/dL (1.8-2.4); PHOSPHOROUS 3.7 mg/dL (2.5-4.9); POTASSIUM - SERUM 3.8 mmol/L (3.5-5.1); SODIUM 142 mmol/L (136-145); UREA NITROGEN 14 mg/dL (7-18); eGFR NON AFRICAN AMERICAN 80 mL/min (90-120)
--- NOTE | 2020-09-03 07:15 | NUR ---
RECEIVE SHIFT REPORT. CAMERA AT NURSE STATION. PATIENT WALKING IN HALLWAY STATING PEOPLE ARE STEALING AND THERE IS SOMETHING GOING ON. BLOOD IN FLOOR. PATIENT STATES HE RIPPED HIS TUBING AND TIED IT IN A KNOT SO IT DID NOT BLEED THIS TIME. WALKING TO MED SURG REFUSING TO GO BACK TO ROOM. STATES HE HAS TO GET OUT OF HERE. GOT HIM BACK TO HIS ROOM AND CLOSED HIS DOORS. WILL CONTINUE MONITORING.
--- NOTE | 2020-09-03 07:30 | NUR ---
ENMANUEL SALGUERO STATING HE IS LEAVING. KEYS IN HAND. REFUSING TO GO BACK TO ROOM. TRYING TO GO DOWN ELEVATOR. KIP FUCHS TRYING TO HELP ME GET PATIENT BACK TO ROOM. DR. PEREZ ORDERED HALDOL IM ONE TIME. SECURITY CALLED. SITTING UP ON SIDE OF BED CONTINUING TO TRY AND GET UP. CALLED CHIOMA CHRISTIANSEN FOR ORDERS BILATERAL SOFT WRIST RESTRAINTS PLACED AND PATIENT IN BED. WILL DO VITAL SIGNS Q2H.
--- NOTE | 2020-09-03 11:00 | NUR ---
SECURITY SITTING OUTSIDE OF PATIENT ROOM SITTER.
--- NOTE | 2020-09-03 15:40 | NUR ---
PER NSG, PATIENT WAS IN RESTRAINTS AND HAD ALSO BEEN WALKING AROUND ALREADY. NSG SAID THEY HAD A HARD TIME KEEPING HIM IN THE ROOM. NSG WANTED PT TO HOLD OFF ON PATIENT TODAY.
--- NOTE | 2020-09-03 17:32 | NUR ---
TOOK OUT OF RESTRAINTS AND OFFERED PATIENT DINNER. DID NOT WANT TO EAT. WILL NOT STAY IN BED AND KEEP MONITORS ON. PLACED BACK IN BILATERAL SOFT WRIST RESTRAINTS. SITTER AT SIDE.
--- NOTE | 2020-09-03 19:15 | NUR ---
RESTRAINTS RELEASED FOR AMBULATION TO BR, PT REUTRNED TO BED RESTRAINTS REAPPLIED PER ORDERS
--- NOTE | 2020-09-03 21:30 | NUR ---
RESTRAINTS OFF FOR REPOSITIONING, PT MOVING ARMS AND LEGS WITHOUT ANY ISSUE
[2020-09-04] VITALS (8 sets, daily range): BP systolic 109–138; BP diastolic 63–87
--- NOTE | 2020-09-04 00:38 | NUR ---
PT BECOMING MORE AND MORE RESTLESS, PARANOID, SEEING A GIRL/WOMAN IN HIS BED RAIL. THROIWING FEET FROM SIDE TO SIDE ON THE BED. BILAT WRIST RESTRIANTS CHECKED, VIDEO IN USE, SITTER AT BEDSIDE. ORDER TO REPEAT KAYLADOL X1 FROM VINNY STEPHEN, MORPHINE FELL OFF JUN OK'D TO RESUME. PT PULLED IV OUT TODAY WILL ATTEMPT TO REPALCE IF POSSIBLE. WILL CONTINUE TO MONITOR
--- NOTE | 2020-09-04 00:40 | NUR ---
RESTRAINTS REMOVED FOR REPOSITIONING OF PT PIV ATTEMPTED TO RIGHT HAND X1 PT AGITATED PULLING ARMS AWAY, KICKING AT STAFF. SITTER REMAINS AT BS
--- NOTE | 2020-09-04 01:55 | NUR ---
pt remains restless, agitated, kicking at staff when staff attempt to adjust him in bed or adjust restraints. continues to talk to people who are not there, rambles on continously, moving from side to side attmepting to slide to end of bed. sitter remains at bedside. redness to bue not new, bruising to bue that is also npt new. dressing to old PIV site on right forearm noted. spoke to Franca BEDOLLA order for JOHNNY Gusman received.
--- NOTE | 2020-09-04 02:00 | NUR ---
RESTRAINTS REMOVED FOR REPOSITIONING OF PT
--- NOTE | 2020-09-04 02:57 | NUR ---
pt remains awake, talking nonstop. has calmed somewhat talking more coherently now, reports back pain which is chronic. new PIV placed, pt cooperated toelrated well. PIV placed to left hand x1 attempt, 22 gauge. PRN morphine given. ground instructor basic placed back on pt for 3rd, or more, time this shift. sitter remains at bedside, will continue to monitor
--- NOTE | 2020-09-04 03:00 | NUR ---
RESTRAINTS REMOVED FOR REPOSTIONING OF PT REAPPLIED PER MD ORDER, PT WITH FULL ROM NOTED. WILL COTNINUE TO MONITOR
[2020-09-04 03:51] LABS: BASOPHILS 0.5 % (0-2); EOSINOPHILS 0.9 % (0-7); HEMATOCRIT 31.3 % (42.0-54.0); HEMOGLOBIN 10.6 g/dL (13.5-17.5); LYMPHOCYTES 26.5 % (15-50); MCH 31.4 pg (26.0-34.0); MCV 92.5 fL (80.0-100.0); MEAN PLATELET VOLUME 7.6 fL (7.4-10.4); MONOCYTES 11.5 % (2-11); NEUTROPHILS 60.6 % (40-80); RBC 3.38 10x6/uL (4.20-6.10); RDW 13.7 % (11.5-14.5)
[2020-09-04 04:01] LABS: PLATELET COUNT 111 10x3/uL (130-400); WBC 6.9 10x3/uL (4.8-10.8)
[2020-09-04 04:20] LABS: ALBUMIN 3.1 g/dL (3.4-5.0); ALKALINE PHOSPHATASE 99 U/L (30-120); ALT (SGPT) 17 U/L (10-68); BILIRUBIN - TOTAL 0.95 mg/dL (0.2-1.3); CALC OSMOLALITY 280 mosm/kg (275-300); CALCIUM 9.1 mg/dL (8.5-10.1); CARBON DIOXIDE 20.3 mmol/L (21.0-32.0); CHLORIDE - SERUM 109 mmol/L (98-107); GLUCOSE 86 mg/dL (74-106); PHOSPHOROUS 4.2 mg/dL (2.5-4.9); PROTEIN - SERUM 6.7 g/dL (6.4-8.2); SODIUM 142 mmol/L (136-145); UREA NITROGEN 11 mg/dL (7-18); eGFR NON AFRICAN AMERICAN 80 mL/min (90-120)
[2020-09-04 04:26] LABS: MAGNESIUM - SERUM 1.7 mg/dL (1.8-2.4)
--- NOTE | 2020-09-04 05:55 | NUR ---
pt remains restless, confused, pulled left hand PIV out. dressing applied to site. sitter remains at BS. will continue to monitor
--- NOTE | 2020-09-04 06:00 | NUR ---
RESTRAINTS REMOVED FOR REPOSITIONING OF PT, REAPPLIED PER ORDERS PT CONTNUES TO PULL AT EQUIPMENT, SLINGING LEGS OVER SIDE OF BED, RESTLESS TALKING ALMOST NONSTOP SITTER REMAINS AT BEDSIDE
--- NOTE | 2020-09-04 06:15 | NUR ---
22 GAUGE PLACED TO LEFT AC X1 STICK, PT TOLERATED WELL NO DISTRESS NOTED. PT NOW SAYING SEXUALLY INAPPROPRIATE COMMENTS SITTER REMAINS BS
--- NOTE | 2020-09-04 07:20 | NUR ---
Sitting up in chair at bedside, sitter and ARTS ADMINISTRATOR present, restraints released for meal, awake/alert/speaking nonsensical sentences and ambulating about the room with no pants/underwear, T/R self ad karina, cont of B/B with BRPs with assist ad karina, denies pain/other discomfort at this time, call light/phone/water within reach, no s/s of acute distress observed.
--- NOTE | 2020-09-04 08:00 | NUR ---
Pt off restraints, cont to speak nonsensical but is not combative or interrupting treatment/lines.
--- NOTE | 2020-09-04 10:00 | NUR ---
Pt cont without restraints, currently wandering room and talking without making sense, no self harm ideations/no interrupting treatment/no pulling out IV line.
--- NOTE | 2020-09-04 12:00 | NUR ---
No restraints in use at this time, currently pt is lying in bed with eyes closed and respirations slow/deep/even but rouses easily with verbal stimulus, no s/s of acute distress observed.
--- NOTE | 2020-09-04 13:01 | NUR ---
Nutrition Follow-up: Diet: Regular PO intake: ~92% average x last 6 meals Last BM: 09/02/20 Wt: 186.4# (09/04/20) Meds noted: JIGNESH bailey@125 Labs noted: reviewed Recommend: -Continue current diet. Will continue to honor food preferences. -RD will re-assess 09/07/20.
--- NOTE | 2020-09-04 13:59 | MORECARE ---
CASE MANAGEMENT DISCHARGE SUMMARY PATIENT: JAY CARRERA UNIT: [id number] ADM DATE: 08/31/20 AGE: 65 : 56 SEX: M ROOM/BED: D.210 AUTHOR: SORAYA,DOC PHYSICIAN: REFERRING PHYSICIAN: ARLEN BUTLER MD DATE OF SERVICE: 09/04/20 Case Management Discharge Planning Summary DCP REVIEW SUMMARY ANTICIPATED D/C DATE: 09/04/2020 EXPECTED LOS : 4 CASE STATUS: DCP Initiated INITIAL REVIEW: 08/31/2020 INITIAL REVIEWER: Sita Appiha FINAL DISCHARGE DISPOSITION: : FINAL REVIEWER: FINAL REVIEW DATE: DCP Focus Questions & Answers QUESTION: ANSWER : PATIENT: JAY CARRERA ENCOUNTER: [id number] MEDICAL RECORD#: [id number] ADMISSION DATE: 08/31/2020 DISCHARGE DATE: ATTENDING MD: : AGE: 65 MARITAL STATUS: D DC PLAN ID: [id number] FACILITY: [facility] PRINTED ON: 09/04/20 13:59 CT All edits/amendments must be made on the electronic document DICTATION DATE: 09/04/20 1359 CREW CHIEF: DM 09/04/20 1359 RPT#: [id number] DC DATE: STATUS: ADM IN [facility] [address] [place] [address] END OF REPORT
--- NOTE | 2020-09-04 14:10 | NUR ---
Standing in doorway asking sitter for his wet clothing from admission, no restraints at this time, no pulling at IV access, no s/s of acute distress observed, words/sentence structure are nonsensical.
--- NOTE | 2020-09-04 14:12 | MORECARE ---
CASE MANAGEMENT DISCHARGE SUMMARY PATIENT: JAY CARRERA UNIT: [id number] ADM DATE: 08/31/20 AGE: 65 : 56 SEX: M ROOM/BED: D.2104 AUTHOR: DENNIS LIRA PHYSICIAN: REFERRING PHYSICIAN: ARLEN BUTLER MD DATE OF SERVICE: 09/04/20 Case Management Discharge Planning Summary DCP REVIEW SUMMARY ANTICIPATED D/C DATE: 09/04/2020 EXPECTED LOS : 4 CASE STATUS: DCP Initiated INITIAL REVIEW: 08/31/2020 INITIAL REVIEWER: Sita Appiah FINAL DISCHARGE DISPOSITION: : FINAL REVIEWER: FINAL REVIEW DATE: DCP Focus Questions & Answers DCP Screen QUESTION: ANSWER High Risk Factors: : Poor health literacy DCP Evaluation QUESTION: ANSWER Patient and/or caregiver agree upon recommended discharge plan? : Yes Family / Caregiver's ability to cope with chronic illness: : a. Adequate (ability to meet patient's medical needs, ensures patient attends medical appts.) Patient's current cognitive status: : Intermittently confused / memory changes Patient's current cognitive status: : *Oriented to person, place, situation, time and present Patient's ability to cope with chronic illness : d. No chronic illness Does the patient have the ability to pay for or attain post discharge needs / services? : N/A Functional screen assessment: : Basic needs can adequately be met by self Family / Caregiver's ability to cope with chronic illness: : a. Adequate (ability to meet patient's medical needs, ensures patient attends medical appts.) Physical Status: : Independent with ADL's Equipment needed for post hospitalization: : None Is there a likelihood that the patient will require additional services to return to the preadmission environment? : N/A Living Arrangements: : Home with others Results of this evaluation have been discussed with: : Patient Patient with capacity for self-care or can be cared for in same environment as prior to hospitalization? : Yes Living arrangements comments: : HAS ROOM MATE Baseline cognitive status: : Intermittently confused / memory changes Baseline cognitive status: : *Oriented to person, place, situation, time and present Physical environment modification needed / anticipated for discharge: : No Medication Management: : Patient states they do have transportation to fruit or nut picker medications Medication Management: : Patient states can afford medications Planned post hospital services available for patient? : N/A Pharmacy name(s): : [facility] [address] [place] Planned post hospital services covered by insurance plan? : N/A Does Patient have transportation to get home and to follow-up medical appointments when discharged from the hospital? : Yes Would patient like to participate in any Care Coordination programs (if applicable): : Not applicable Does the patient have electricity at home? : Yes Does the patient have running water in their house? : Yes Equipment in use: : None Mental health screen: : No mental health history Psychosocial status: : Independent adult (18-64) Abuse/Neglect: : Substance abuse - Current Abuse/Neglect: : Recreational drug use - Current Abuse/Neglect: : Alcohol use - Current Resources / Services in place: : None DCP Re-evaluation QUESTION: ANSWER Would patient like to participate in any Care Coordination programs (if applicable): : Not applicable PATIENT: JAY CARRERA ENCOUNTER: [id number] MEDICAL RECORD#: [id number] ADMISSION DATE: 08/31/2020 DISCHARGE DATE: ATTENDING MD: : AGE: 65 MARITAL STATUS: D DC PLAN ID: [id number] FACILITY: [facility] PRINTED ON: 09/04/20 14:12 CT All edits/amendments must be made on the electronic document DICTATION DATE: 09/04/201411 CALIBRATION SPECIALIST: HERLINDA 09/04/201411 RPT#: [id number] DC DATE: STATUS: ADM IN [facility] [address] [place] [address] END OF REPORT
--- NOTE | 2020-09-04 14:25 | NUR ---
Pt has belongings that were collected from the room, pt is nonsensical/manic, some items were $41 mendieta, DL, insurance card, and some keys on a chain. These items were sent to ER to be locked in safe.
--- NOTE | 2020-09-04 14:26 | MORECARE ---
CASE MANAGEMENT DISCHARGE SUMMARY PATIENT: JAY CARRERA UNIT: [id number] ADM DATE: 08/31/20 AGE: 65 : 56 SEX: M ROOM/BED: D.2101 AUTHOR: SORAYA,DOC PHYSICIAN: REFERRING PHYSICIAN: ARLEN BUTLER MD DATE OF SERVICE: 09/04/20 Case Management Discharge Planning Summary COMMENTS ENTERED DATE: 09/04/20 14:15 CT COMMENT TYPE: Discharge Planning REVIEWER: Sita Appiah CM MET WITH PATIENT TO DISCUSS DISCHARGE PLANNING AND OFFER AVAILABILITY OF NEEDED SERVICES. PATIENT STATES THAT HE LIVE AT [facility] AND HAS A "ROOM MATE" THAT HELPS WITH COOKING AND CLEANING. PATIENT DENIES NEED FOR ADDTIONAL SECURITY BUSINESS ANALYST OR ADL SERVICES AT TIME OF ASSESSMENT. PT STATES THAT HE HAS TRANSPORTATION FROM HOSPITAL THROUGH HIS FRIENDS AND OWN A CAR WHICH HE CAN OBTAIN HIS MEDICATONS AND KEEP DOCTOR APPOINTMENTS. PT STATES HIS PCP IS LATOYA QUINN NP AND HE USES [facility] ON [address]. PATIENT IS AWAITING MENTAL HEALTH EVAL PRIOR TO DISCHARGE. PT IS TALKATIVE, IS ALERT X4, YET NEEDED TO BE REDIRECTED WITH QUESTIONS DURING ASSESSMENTS. PT DENIES ADDITIONAL HOME CARE NEEDS OR EQUIPMENT, SIGNED REFUSAL AND ANNAMARIE PLACED IN CHART.PT STATES THAT HE GETS SUPPORT FORM HIS [place] AND PLANS TO ATTEND MEETINGS THERE. WYP REVIEW SUMMARY ANTICIPATED D/C DATE: 09/04/2020 EXPECTED LOS : 4 CASE STATUS: DCP Initiated INITIAL REVIEW: 08/31/2020 INITIAL REVIEWER: Sita Appiah FINAL DISCHARGE DISPOSITION: : FINAL REVIEWER: FINAL REVIEW DATE: DCP Focus Questions & Answers DCP Screen QUESTION: ANSWER High Risk Factors: : Poor health literacy DCP Evaluation QUESTION: ANSWER Patient and/or caregiver agree upon recommended discharge plan? : Yes Family / Caregiver's ability to cope with chronic illness: : a. Adequate (ability to meet patient's medical needs, ensures patient attends medical appts.) Patient's current cognitive status: : Intermittently confused / memory changes Patient's current cognitive status: : *Oriented to person, place, situation, time and present Patient's ability to cope with chronic illness : d. No chronic illness Does the patient have the ability to pay for or attain post discharge needs / services? : N/A Functional screen assessment: : Basic needs can adequately be met by self Family / Caregiver's ability to cope with chronic illness: : a. Adequate (ability to meet patient's medical needs, ensures patient attends medical appts.) Physical Status: : Independent with ADL's Equipment needed for post hospitalization: : None Is there a likelihood that the patient will require additional services to return to the preadmission environment? : N/A Living Arrangements: : Home with others Results of this evaluation have been discussed with: : Patient Patient with capacity for self-care or can be cared for in same environment as prior to hospitalization? : Yes Living arrangements comments: : HAS ROOM MATE Baseline cognitive status: : Intermittently confused / memory changes Baseline cognitive status: : *Oriented to person, place, situation, time and present Physical environment modification needed / anticipated for discharge: : No Medication Management: : Patient states they do have transportation to cotton picking machine operator medications Medication Management: : Patient states can afford medications Planned post hospital services available for patient? : N/A Pharmacy name(s): : [facility] [address] [place] Planned post hospital services covered by insurance plan? : N/A Does Patient have transportation to get home and to follow-up medical appointments when discharged from the hospital? : Yes Would patient like to participate in any Care Coordination programs (if applicable): : Not applicable Does the patient have electricity at home? : Yes Does the patient have running water in their house? : Yes Equipment in use: : None Mental health screen: : No mental health history Psychosocial status: : Independent adult (18-64) Abuse/Neglect: : Substance abuse - Current Abuse/Neglect: : Recreational drug use - Current Abuse/Neglect: : Alcohol use - Current Resources / Services in place: : None DCP Re-evaluation QUESTION: ANSWER Would patient like to participate in any Care Coordination programs (if applicable): : Not applicable PATIENT: JAY CARRERA ENCOUNTER: [id number] MEDICAL RECORD#: [id number] ADMISSION DATE: 08/31/2020 DISCHARGE DATE: ATTENDING MD: NURIA: AGE: 65 MARITAL STATUS: D DC PLAN ID: [id number] FACILITY: [facility] PRINTED ON: 09/04/20 14:26 CT All edits/amendments must be made on the electronic document DICTATION DATE: 09/04/201425 MILLWORK ESTIMATOR: HERLINDA 09/04/201425 RPT#: [id number] DC DATE: STATUS: ADM IN [facility] [address] [place] [address] END OF REPORT
--- NOTE | 2020-09-04 19:30 | NUR ---
PT UP WALKING AROUND IN ROOM , PT AAO X 2, PT CONFUSED AT TIMES, RESP EVEN AND UNLABORED, NO DISTRESS NOTED, CL IN REACH.
--- NOTE | 2020-09-04 20:39 | MORECARE ---
CASE MANAGEMENT DISCHARGE SUMMARY PATIENT: JAY CARRERA UNIT: [id number] ADM DATE: 08/31/20 AGE: 65 : 57 SEX: M ROOM/BED: D.2101 AUTHOR: SORAYA,DOC PHYSICIAN: REFERRING PHYSICIAN: ARLEN BUTLER MD DATE OF SERVICE: 09/04/20 Case Management Discharge Planning Summary COMMENTS ENTERED DATE: 09/04/20 14:15 CT COMMENT TYPE: Discharge Planning REVIEWER: Sita Appiah CM MET WITH PATIENT TO DISCUSS DISCHARGE PLANNING AND OFFER AVAILABILITY OF NEEDED SERVICES. PATIENT STATES THAT HE LIVE AT [facility] AND HAS A "ROOM MATE" THAT HELPS WITH COOKING AND CLEANING. PATIENT DENIES NEED FOR ADDTIONAL QA DEVELOPER OR ADL SERVICES AT TIME OF ASSESSMENT. PT STATES THAT HE HAS TRANSPORTATION FROM HOSPITAL THROUGH HIS FRIENDS AND OWN A CAR WHICH HE CAN OBTAIN HIS MEDICATONS AND KEEP DOCTOR APPOINTMENTS. PT STATES HIS PCP IS LATOYA QUINN NP AND HE USES [facility] ON [address]. PATIENT IS AWAITING MENTAL HEALTH EVAL PRIOR TO DISCHARGE. PT IS TALKATIVE, IS ALERT X4, YET NEEDED TO BE REDIRECTED WITH QUESTIONS DURING ASSESSMENTS. PT DENIES ADDITIONAL HOME CARE NEEDS OR EQUIPMENT, SIGNED REFUSAL AND ANNAMARIE PLACED IN CHART.PT STATES THAT HE GETS SUPPORT FORM HIS [facility]DAEISM AND PLANS TO ATTEND MEETINGS THERE. KYP REVIEW SUMMARY ANTICIPATED D/C DATE: 09/04/2020 EXPECTED LOS : 4 CASE STATUS: DCP Initiated INITIAL REVIEW: 08/31/2020 INITIAL REVIEWER: Sita Appiah FINAL DISCHARGE DISPOSITION: : FINAL REVIEWER: FINAL REVIEW DATE: DCP Focus Questions & Answers DCP Screen QUESTION: ANSWER High Risk Factors: : Poor health literacy DCP Evaluation QUESTION: ANSWER Patient and/or caregiver agree upon recommended discharge plan? : Yes Family / Caregiver's ability to cope with chronic illness: : a. Adequate (ability to meet patient's medical needs, ensures patient attends medical appts.) Patient's current cognitive status: : Intermittently confused / memory changes Patient's current cognitive status: : *Oriented to person, place, situation, time and present Patient's ability to cope with chronic illness : d. No chronic illness Does the patient have the ability to pay for or attain post discharge needs / services? : N/A Functional screen assessment: : Basic needs can adequately be met by self Family / Caregiver's ability to cope with chronic illness: : a. Adequate (ability to meet patient's medical needs, ensures patient attends medical appts.) Physical Status: : Independent with ADL's Equipment needed for post hospitalization: : None Is there a likelihood that the patient will require additional services to return to the preadmission environment? : N/A Living Arrangements: : Home with others Results of this evaluation have been discussed with: : Patient Patient with capacity for self-care or can be cared for in same environment as prior to hospitalization? : Yes Living arrangements comments: : HAS ROOM MATE Baseline cognitive status: : Intermittently confused / memory changes Baseline cognitive status: : *Oriented to person, place, situation, time and present Physical environment modification needed / anticipated for discharge: : No Medication Management: : Patient states they do have transportation to pick up man medications Medication Management: : Patient states can afford medications Planned post hospital services available for patient? : N/A Pharmacy name(s): : [facility] [address] [place] Planned post hospital services covered by insurance plan? : N/A Does Patient have transportation to get home and to follow-up medical appointments when discharged from the hospital? : Yes Would patient like to participate in any Care Coordination programs (if applicable): : Not applicable Does the patient have electricity at home? : Yes Does the patient have running water in their house? : Yes Equipment in use: : None Mental health screen: : No mental health history Psychosocial status: : Independent adult (18-64) Abuse/Neglect: : Substance abuse - Current Abuse/Neglect: : Recreational drug use - Current Abuse/Neglect: : Alcohol use - Current Resources / Services in place: : None DCP Re-evaluation QUESTION: ANSWER Would patient like to participate in any Care Coordination programs (if applicable): : Not applicable PATIENT: JAY CARRERA ENCOUNTER: [id number] MEDICAL RECORD#: [id number] ADMISSION DATE: 08/31/2020 DISCHARGE DATE: ATTENDING MD: NURIA: AGE: 65 MARITAL STATUS: D DC PLAN ID: [id number] FACILITY: [facility] PRINTED ON: 09/04/20 20:39 CT All edits/amendments must be made on the electronic document DICTATION DATE: 09/04/202038 ONLINE CONTENT DEVELOPER: HERLINDA 09/04/202038 RPT#: [id number] DC DATE: STATUS: ADM IN [facility] [address] [place] [address] END OF REPORT
--- NOTE | 2020-09-04 20:55 | NUR ---
bourbon 1 oz given to pt at 2054. computer will not document given at this time in room. pharmacy notifed.
[2020-09-05] VITALS: BP 118/75
--- NOTE | 2020-09-05 00:17 | NUR ---
I have reviewed this patient and I concur with the Shift Assessment completed by the Licensed Practical Nurse today this shift.
[2020-09-05 04:00] VITALS: BP 144/87
[2020-09-05 06:24] LABS: BASOPHILS 0.7 % (0-2); EOSINOPHILS 1.2 % (0-7); HEMATOCRIT 32.7 % (42.0-54.0); HEMOGLOBIN 10.8 g/dL (13.5-17.5); LYMPHOCYTES 21.9 % (15-50); MCH 30.7 pg (26.0-34.0); MCHC 33.1 g/dL (31.0-37.0); MCV 92.7 fL (80.0-100.0); MEAN PLATELET VOLUME 7.7 fL (7.4-10.4); MONOCYTES 13.3 % (2-11); NEUTROPHILS 62.9 % (40-80); PLATELET COUNT 126 10x3/uL (130-400); RBC 3.52 10x6/uL (4.20-6.10); WBC 6.8 10x3/uL (4.8-10.8)
[2020-09-05 06:44] LABS: ALBUMIN 3.3 g/dL (3.4-5.0); ANION GAP 13.1 mmol/L (8-16); BILIRUBIN - TOTAL 0.65 mg/dL (0.2-1.3); CALCIUM 9.1 mg/dL (8.5-10.1); CARBON DIOXIDE 27.3 mmol/L (21.0-32.0); CREATININE - SERUM 1.2 mg/dL (0.6-1.3); MAGNESIUM - SERUM 1.7 mg/dL (1.8-2.4); PHOSPHOROUS 3.7 mg/dL (2.5-4.9); POTASSIUM - SERUM 3.4 mmol/L (3.5-5.1); PROTEIN - SERUM 7.1 g/dL (6.4-8.2)
--- NOTE | 2020-09-05 07:00 | NUR ---
Lying in bed, awake/alert, has hallucinations (for example, a rat in his room, thought door hinge was a bug), is hearing voices and is constantly talking and making no sense to anyone but himself, T/R self ad karina, cont of B/B with BRPs per self (if he even remembers to go then is incont when forgets), denies pain/other discomfort then speaks about not being able to swallow large pills d/t his "gout", call light/phone/water within reach, no s/s of acute distress observed.
[2020-09-05 07:49] VITALS: BP 147/87
[2020-09-05 08:00] VITALS: BP 147/87
--- NOTE | 2020-09-05 09:51 | MORECARE ---
CASE MANAGEMENT DISCHARGE SUMMARY PATIENT: JAY CARRERA UNIT: [id number] ADM DATE: 08/31/20 AGE: 65 : 57 SEX: M ROOM/BED: D.2102 AUTHOR: SORAYA,DOC PHYSICIAN: REFERRING PHYSICIAN: ARLEN BUTLER MD DATE OF SERVICE: 09/05/20 Case Management Discharge Planning Summary COMMENTS ENTERED DATE: 09/05/20 9:29 CT COMMENT TYPE: Discharge Planning REVIEWER: Sita Appiah CM TO SEE PATIENT THIS AM PRIOR TO DISCHARGE TO OFFER RESOURCE INFORMATION FOR ALCOHOL AND COUNCELLING SUPPORT GROUPS. PT STATES THAT HE HAS ATTENDED MEETING AT A LOCAL HOLINESS AND HAS TRANSPORTATION TO OTHER PLACES IF HE CHOOSES. PT DENIES A NEED FOR MEETINGS, BUT DID VOICE THAT HE NEEDS TO "GET SOME PEOPLE OUT OF HIS HOUSE". PT VOICES THAT HE WILL NOT HAVE A PROBLEM ONCE HIS ROOM MATE LEAVES. PLAN IS FOR DISCHARGE TODAY AND PATIENT STATES HE HAS A RIDE HOME IF HIS CAR IN NOT IN THE ER PARKING LOT WHERE HE BELIEVES IT IS. ENTERED DATE: 09/04/20 14:15 CT COMMENT TYPE: Discharge Planning REVIEWER: Sita Appiah CM MET WITH PATIENT TO DISCUSS DISCHARGE PLANNING AND OFFER AVAILABILITY OF NEEDED SERVICES. PATIENT STATES THAT HE LIVE AT [facility] AND HAS A "ROOM MATE" THAT HELPS WITH COOKING AND CLEANING. PATIENT DENIES NEED FOR ADDTIONAL TUBE BENDER HAND OR ADL SERVICES AT TIME OF ASSESSMENT. PT STATES THAT HE HAS TRANSPORTATION FROM HOSPITAL THROUGH HIS FRIENDS AND OWN A CAR WHICH HE CAN OBTAIN HIS MEDICATONS AND KEEP DOCTOR APPOINTMENTS. PT STATES HIS PCP IS LATOYA QUINN NP AND HE USES [facility] ON [address]. PATIENT IS AWAITING MENTAL HEALTH EVAL PRIOR TO DISCHARGE. PT IS TALKATIVE, IS ALERT X4, YET NEEDED TO BE REDIRECTED WITH QUESTIONS DURING ASSESSMENTS. PT DENIES ADDITIONAL HOME CARE NEEDS OR EQUIPMENT, SIGNED REFUSAL AND ANNAMARIE PLACED IN CHART.PT STATES THAT HE GETS SUPPORT FORM HIS HOLINESS AND PLANS TO ATTEND MEETINGS THERE. DCP REVIEW SUMMARY ANTICIPATED D/C DATE: 09/04/2020 EXPECTED LOS : 4 CASE STATUS: DCP Initiated INITIAL REVIEW: 08/31/2020 INITIAL REVIEWER: Sita Appiah FINAL DISCHARGE DISPOSITION: : FINAL REVIEWER: FINAL REVIEW DATE: DCP Focus Questions & Answers DCP Screen QUESTION: ANSWER High Risk Factors: : Poor health literacy DCP Evaluation QUESTION: ANSWER Patient and/or caregiver agree upon recommended discharge plan? : Yes Family / Caregiver's ability to cope with chronic illness: : a. Adequate (ability to meet patient's medical needs, ensures patient attends medical appts.) Patient's current cognitive status: : Intermittently confused / memory changes Patient's current cognitive status: : *Oriented to person, place, situation, time and present Patient's ability to cope with chronic illness : d. No chronic illness Does the patient have the ability to pay for or attain post discharge needs / services? : N/A Functional screen assessment: : Basic needs can adequately be met by self Family / Caregiver's ability to cope with chronic illness: : a. Adequate (ability to meet patient's medical needs, ensures patient attends medical appts.) Physical Status: : Independent with ADL's Equipment needed for post hospitalization: : None Is there a likelihood that the patient will require additional services to return to the preadmission environment? : N/A Living Arrangements: : Home with others Results of this evaluation have been discussed with: : Patient Patient with capacity for self-care or can be cared for in same environment as prior to hospitalization? : Yes Living arrangements comments: : HAS ROOM MATE Baseline cognitive status: : Intermittently confused / memory changes Baseline cognitive status: : *Oriented to person, place, situation, time and present Physical environment modification needed / anticipated for discharge: : No Medication Management: : Patient states they do have transportation to berry picker medications Medication Management: : Patient states can afford medications Planned post hospital services available for patient? : N/A Pharmacy name(s): : [facility] [address] [place] Planned post hospital services covered by insurance plan? : N/A Does Patient have transportation to get home and to follow-up medical appointments when discharged from the hospital? : Yes Would patient like to participate in any Care Coordination programs (if applicable): : Not applicable Does the patient have electricity at home? : Yes Does the patient have running water in their house? : Yes Equipment in use: : None Mental health screen: : No mental health history Psychosocial status: : Independent adult (18-64) Abuse/Neglect: : Substance abuse - Current Abuse/Neglect: : Recreational drug use - Current Abuse/Neglect: : Alcohol use - Current Resources / Services in place: : None DCP Re-evaluation QUESTION: ANSWER Would patient like to participate in any Care Coordination programs (if applicable): : Not applicable PATIENT: JAY CARRERA ENCOUNTER: [id number] MEDICAL RECORD#: [id number] ADMISSION DATE: 08/31/2020 DISCHARGE DATE: ATTENDING MD: NURIA: AGE: 65 MARITAL STATUS: D DC PLAN ID: [id number] FACILITY: [facility] PRINTED ON: 09/05/20 9:50 CT All edits/amendments must be made on the electronic document DICTATION DATE: 09/05/20949 CHIEF ENGINEER PRODUCTION: HERLINDA 09/05/20949 RPT#: [id number] DC DATE: STATUS: ADM IN [facility] [address] [place] [address] END OF REPORT
--- NOTE | 2020-09-05 11:15 | NUR ---
Provided written/verbal discharge instructions/eduction to which pt voiced understanding, discontinued IV access at this time, waiting for pt ride home.
--- NOTE | 2020-09-05 11:20 | NUR ---
PATIENT WALKING AROUND IN [place] INDEPENDENTLY.
--- NOTE | 2020-09-05 12:51 | NUR ---
Discharged home to self care in stable condition via w/c accompanied by hospital staff and it security consulting director, no s/s of acute distress observed.
--- NOTE | 2020-09-05 12:59 | MORECARE ---
CASE MANAGEMENT DISCHARGE SUMMARY PATIENT: JAY CARRERA UNIT: [id number] ADM DATE: 08/31/20 AGE: 65 : 57 SEX: M ROOM/BED: D.2101 AUTHOR: SORAYA,DOC PHYSICIAN: REFERRING PHYSICIAN: ARLEN BUTLER MD DATE OF SERVICE: 09/05/20 Case Management Discharge Planning Summary COMMENTS ENTERED DATE: 09/05/20 12:50 CT COMMENT TYPE: Discharge Planning REVIEWER: Celina Brink Provided taxi for patient to get home. His brother states unable to pick him up as planned. ENTERED DATE: 09/05/20 9:29 CT COMMENT TYPE: Discharge Planning REVIEWER: Sita Appiah CM TO SEE PATIENT THIS AM PRIOR TO DISCHARGE TO OFFER RESOURCE INFORMATION FOR ALCOHOL AND COUNCELLING SUPPORT GROUPS. PT STATES THAT HE HAS ATTENDED MEETING AT A LOCAL [facility] AND HAS TRANSPORTATION TO OTHER PLACES IF HE CHOOSES. PT DENIES A NEED FOR MEETINGS, BUT DID VOICE THAT HE NEEDS TO "GET SOME PEOPLE OUT OF HIS HOUSE". PT VOICES THAT HE WILL NOT HAVE A PROBLEM ONCE HIS ROOM MATE LEAVES. PLAN IS FOR DISCHARGE TODAY AND PATIENT STATES HE HAS A RIDE HOME IF HIS CAR IN NOT IN THE ER PARKING LOT WHERE HE BELIEVES IT IS. ENTERED DATE: 09/04/20 14:15 CT COMMENT TYPE: Discharge Planning REVIEWER: Sita Appiah CM MET WITH PATIENT TO DISCUSS DISCHARGE PLANNING AND OFFER AVAILABILITY OF NEEDED SERVICES. PATIENT STATES THAT HE LIVE AT [facility] AND HAS A "ROOM MATE" THAT HELPS WITH COOKING AND CLEANING. PATIENT DENIES NEED FOR ADDTIONAL ARTISTS' MODEL OR ADL SERVICES AT TIME OF ASSESSMENT. PT STATES THAT HE HAS TRANSPORTATION FROM HOSPITAL THROUGH HIS FRIENDS AND OWN A CAR WHICH HE CAN OBTAIN HIS MEDICATONS AND KEEP DOCTOR APPOINTMENTS. PT STATES HIS PCP IS LATOYA QUINN NP AND HE USES [facility] ON [address]. PATIENT IS AWAITING MENTAL HEALTH EVAL PRIOR TO DISCHARGE. PT IS TALKATIVE, IS ALERT X4, YET NEEDED TO BE REDIRECTED WITH QUESTIONS DURING ASSESSMENTS. PT DENIES ADDITIONAL HOME CARE NEEDS OR EQUIPMENT, SIGNED REFUSAL AND ANNAMARIE PLACED IN CHART.PT STATES THAT HE GETS SUPPORT FORM HIS [facility] AND PLANS TO ATTEND MEETINGS THERE. NMP REVIEW SUMMARY ANTICIPATED D/C DATE: 09/04/2020 EXPECTED LOS : 4 CASE STATUS: DCP Initiated INITIAL REVIEW: 08/31/2020 INITIAL REVIEWER: Sita Appiah FINAL DISCHARGE DISPOSITION: : FINAL REVIEWER: FINAL REVIEW DATE: DCP Focus Questions & Answers DCP Screen QUESTION: ANSWER High Risk Factors: : Poor health literacy DCP Evaluation QUESTION: ANSWER Patient and/or caregiver agree upon recommended discharge plan? : Yes Family / Caregiver's ability to cope with chronic illness: : a. Adequate (ability to meet patient's medical needs, ensures patient attends medical appts.) Patient's current cognitive status: : Intermittently confused / memory changes Patient's current cognitive status: : *Oriented to person, place, situation, time and present Patient's ability to cope with chronic illness : d. No chronic illness Does the patient have the ability to pay for or attain post discharge needs / services? : N/A Functional screen assessment: : Basic needs can adequately be met by self Family / Caregiver's ability to cope with chronic illness: : a. Adequate (ability to meet patient's medical needs, ensures patient attends medical appts.) Physical Status: : Independent with ADL's Equipment needed for post hospitalization: : None Is there a likelihood that the patient will require additional services to return to the preadmission environment? : N/A Living Arrangements: : Home with others Results of this evaluation have been discussed with: : Patient Patient with capacity for self-care or can be cared for in same environment as prior to hospitalization? : Yes Living arrangements comments: : HAS ROOM MATE Baseline cognitive status: : Intermittently confused / memory changes Baseline cognitive status: : *Oriented to person, place, situation, time and present Physical environment modification needed / anticipated for discharge: : No Medication Management: : Patient states they do have transportation to bead picker medications Medication Management: : Patient states can afford medications Planned post hospital services available for patient? : N/A Pharmacy name(s): : [facility] [address] [place] Planned post hospital services covered by insurance plan? : N/A Does Patient have transportation to get home and to follow-up medical appointments when discharged from the hospital? : Yes Would patient like to participate in any Care Coordination programs (if applicable): : Not applicable Does the patient have electricity at home? : Yes Does the patient have running water in their house? : Yes Equipment in use: : None Mental health screen: : No mental health history Psychosocial status: : Independent adult (18-64) Abuse/Neglect: : Substance abuse - Current Abuse/Neglect: : Recreational drug use - Current Abuse/Neglect: : Alcohol use - Current Resources / Services in place: : None DCP Re-evaluation QUESTION: ANSWER Would patient like to participate in any Care Coordination programs (if applicable): : Not applicable PATIENT: JAY CARRERA ENCOUNTER: [id number] MEDICAL RECORD#: [id number] ADMISSION DATE: 08/31/2020 DISCHARGE DATE: 09/05/2020 ATTENDING MD: NURIA: AGE: 65 MARITAL STATUS: D DC PLAN ID: [id number] FACILITY: [facility] PRINTED ON: 09/05/20 12:59 CT All edits/amendments must be made on the electronic document DICTATION DATE: 09/05/20 125 CHEMI[employer] WATER PURIFICATION: HERLINDA 09/05/20 1259 RPT#: [id number] DC DATE:09/05/20 STATUS: DIS IN [facility] [address] [place] [address] END OF REPORT
== END 2020-09-05 12:51 | disposition home or self-care (01) | DRG 682 ==
LOC: D.ER 00:08 → D.M2 02:22 → OBSVTIME 02:22 → D.M2 16:32
PROVIDERS: Emergency Medicine; Family Medicine; Internal Medicine; ADMIT Family Medicine; ATTEND Family Medicine
DX: N17.9 Acute kidney failure, unspecified (principal); G93.41 Metabolic encephalopathy; E72.20 Disorder of urea cycle metabolism, unspecified; M62.82 Rhabdomyolysis; E87.5 Hyperkalemia; E03.9 Hypothyroidism, unspecified; F10.10 Alcohol abuse, uncomplicated; R73.9 Hyperglycemia, unspecified; F15.90 Other stimulant use, unspecified, uncomplicated; Z86.73 Personal history of transient ischemic attack (TIA), and cerebral infarction without residual deficits